=== PATIENT | female | born 1950 | race Caucasian/White ===

== ENCOUNTER → 2016-06-10 | Outpatient (CLI) | payer MEDICARE, OTHER ==
[~2016-06-10] MED LIST: AMLO10TA2 PO; BACT800T5 PO; BENA40TA PO; CEPH-459 PO; CLIN1CAP6 PO; GABA100C4 PO; GABA300C5 PO; HYDR-3534 PO; HYDR-3801 PO; LEVA500T PO; LEVO137T2 PO; METF500T PO; OMEG100037 PO; OMEGCAP PO; PRAM1 PO; VITA10002 PO; VITA100036 PO; VITA100L BUCCAL; ZOLP10TA3 PO
== END ==
LOC: CWND 09:17
PROVIDERS: ATTEND Family Medicine
DX: Z43.3 Encounter for attention to colostomy (principal)
CPT/HCPCS: 99211; G0463

== ENCOUNTER → 2016-08-04 | Outpatient (CLI) | payer MEDICARE, OTHER ==
[2016-08-04 10:20] LABS: AUTOMATED NEUTROPHIL # 3.7 TH/MM3 (1.8-7.7); BASOPHIL % 0.7 % (0.0-2.0); EOSINOPHIL # 0.1 TH/MM3 (0-0.4); EOSINOPHIL % 1.9 % (0.0-4.0); HEMO FLAGS DIFF FINAL; LYMPH % 23.6 % (9.0-44.0); LYMPHOCYTE # 1.3 TH/MM3 (1.0-4.8); MEAN CELL VOLUME 89.9 FL (80.0-100.0); MEAN CORPUSCULAR HEMOGLOBIN 29.3 PG (27.0-34.0); MEAN CORPUSCULAR HGB CONC 32.6 % (32.0-36.0); NEUT % 68.8 % (16.0-70.0); PLATELET COUNT 188 TH/MM3 (150-450); RED BLOOD COUNT 4.01 MIL/MM3 (4.00-5.30); RED CELL DISTRIBUTION WIDTH 13.6 % (11.6-17.2); WHITE BLOOD COUNT 5.3 TH/MM3 (4.0-11.0)
[2016-08-04 10:44] LABS: MICRO ALBUMIN RANDOM URINE RAW 5.7 MG/L (0.0-30.0)
[2016-08-04 10:49] LABS: HDL CHOLESTEROL 72.1 MG/DL (40.0-60.0); LDL CHOLESTEROL 89 MG/DL (0-99)
[2016-08-04 11:18] LABS: HEMOGLOBIN A1a 1.2 %; HEMOGLOBIN A1b 1.5 %; HEMOGLOBIN Ao 84.9 %; HEMOGLOBIN LA1C 2.2 %; HEMOGLOBIN P3 5.5 %
== END ==
LOC: CLAB 09:38
PROVIDERS: ATTEND Family Medicine
DX: E03.9 Hypothyroidism, unspecified (principal); E78.5 Hyperlipidemia, unspecified; E11.9 Type 2 diabetes mellitus without complications; E55.9 Vitamin D deficiency, unspecified; G47.00 Insomnia, unspecified; Z11.59 Encounter for screening for other viral diseases
CPT/HCPCS: 36415; 71020; 80053; 80061; 82043; 82306; 83036; 84443; 85025; 85610; 86803

== ENCOUNTER → 2016-08-04 | Outpatient (CLI) | payer MEDICARE, OTHER ==
[2016-08-04 10:26] LABS: PROTHROMBIN TIME - PATIENT 10.7 SEC (9.8-11.6)
[2016-08-04 10:40] LABS: ALKALINE PHOSPHATASE 94 U/L (45-117); ALT (GPT) 39 U/L (10-53); ANION GAP 6 MEQ/L (5-15); AST (GOT) 40 U/L (15-37); BICARBONATE 27.2 MEQ/L (21.0-32.0); BLOOD UREA NITROGEN 25 MG/DL (7-18); CHLORIDE 109 MEQ/L (98-107); GLOMERULAR FILTRATION RATE 64 ML/MIN (>89); GLUCOSE,FASTING 106 MG/DL (74-99); POTASSIUM 4.2 MEQ/L (3.5-5.1); SODIUM (NA) 142 MEQ/L (136-145); TOTAL BILIRUBIN ADULT 0.6 MG/DL (0.2-1.0)
--- NOTE | 2016-08-04 11:00 | RADRPT ---
EXAM DATE/TIME: 08/04/2016 10:42 [place] COMPARISON: No previous studies available for comparison. INDICATIONS : Evaluate for pneumonia, pnuemothorax, communicable disease. Preop Neuroma Left Foot. MEDICAL HISTORY : None. SURGICAL HISTORY : None. ENCOUNTER: Initial ACUITY: 1 day PAIN SCORE: 0/10 LOCATION: Bilateral chest FINDINGS: PA and lateral views of the chest demonstrate the lungs to be symmetrically aerated without evidence of mass, infiltrate or effusion. The cardiomediastinal contours are unremarkable. Osseous structure s are intact. CONCLUSION: Normal examination for a patient of this age. Cuong Salas MD on August 04, 2016 at 10:57 Board Certified Radiologist. This report was verified electronically.
== END ==
LOC: CPRE 09:22
PROVIDERS: ATTEND Podiatrist Primary Podiatric Medicine
DX: Z01.812 Encounter for preprocedural laboratory examination (principal); Z01.811 Encounter for preprocedural respiratory examination; G57.62 Lesion of plantar nerve, left lower limb
CPT/HCPCS: 36415; 71020; 80053; 85610

== ENCOUNTER → 2016-08-08 | Day surgery (SDC) | payer MEDICARE, OTHER ==
[~2016-08-08] VITALS: Ht 167.6 cm; Wt 86.7 kg
[~2016-08-08] MED LIST changes: +ACETAMINOPHEN 1000 MG/100 ML VIAL IV ONE; +BUPIVACAINE HCL PF 0.5% 30 ML VIAL ONE; +CHLORHEXIDINE GLUCONATE 2 % 1 PACK (2 CLOTHS) TOPICAL PRN; +FAMOTIDINE 20 MG/2 ML VIAL ONE; +IBUPROFEN 400 MG TAB PO PRN; +INSULIN HUMAN REGULAR 1,000 UNITS/10 ML VIAL SQ PRN; +LACTATED RINGER'S 1000 ML IV PRN; -LEVA500T PO; +LIDOCAINE HCL 1% 50 ML VIAL ONE; +METOPROLOL TARTRATE 25 MG TAB PO PRN; +MIDAZOLAM HCL 2 MG/2 ML VIAL ONE; +MORPHINE SULFATE 4 MG/ML INJ IV PRN; +NALOXONE HCL 0.4 MG/ML AMP IV PRN; +ONDANSETRON HCL 4 MG/2 ML VIAL ONE; +POVIDONE IODINE 5% (ANTISEPSIS KIT) 4 APPLICATIONS EACH NARE PRN; +PROPOFOL 200 MG/20 ML AMP IV ONE; +Post-op Orders (for Pharmacy) MISC XX ONE; +SODIUM CHLORID 0.9% 500 ML IV PRN; +SODIUM CHLORIDE 0.9% FLUSH 10 ML FLUSH IV FLUSH PRN; +SODIUM CHLORIDE 0.9% FLUSH 10 ML FLUSH IV FLUSH SCH; +ceFAZolin 2 GM PREMIX 50 ML IV SCH; +fentaNYL CITRATE 250 MCG/5 ML AMP ONE; +hydrALAZINE HCL 20 MG/ML VIAL IV ONE; +hydrALAZINE HCL 20 MG/ML VIAL ONE; +oxyCODONE/ACETAMINOPHEN 10 MG/325 MG TAB PO PRN; +oxyCODONE/ACETAMINOPHEN 5 MG/325 MG TAB PO PRN
[2016-08-08 07:47] VITALS: BP 181/74; PULSE 48; RESP 16; TEMP 97.7; O2SAT 96
--- NOTE | 2016-08-08 09:49 | PD.OP ---
Operative Report Date of Surgery: August 08, 2016 Preoperative Diagnosis: (1) Neuroma of second interspace of left foot Postoperative Diagnosis: (1) Neuroma of second interspace of left foot Procedure: Excision of Zavala's neuroma second interspace left foot Anesthesia: General inhalation Surgeon: Macario Harrison DPM Office Clerk Routine(s): None Operation and Findings: Patient was brought to the OR and placed on the operating table in a supine position. Patient was given general inhalation anesthesia. A pneumatic ankle cuff was placed around the patient's left ankle after padding was applied. Patient's left foot was prepped and draped in the usual sterile manner. After the appropriate timeout was performed the pneumatic ankle cuff was inflated to 250 mmHg. Left foot was lowered to the operating table. 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 A 3 cm linear incision was made over the interspace between the second and third metatarsals. The incision was deepened using sharp and blunt dissection taking care to tie off any superficial bleeding vessels and retracting all vital structures. A small baby laminar shellfish farming supervisor was placed between the second and third metatarsals to spread the metatarsals apart. The Zavala's neuroma was identified at this time then deep dissection. The proximal branch was transected as well as its branches into the second and third toe. The neuroma was removed and sent to pathology. The area is flushed with copious amounts of sterile saline. Subcutaneous tissue was reapproximated and closed using 2-0 Vicryl. Skin edges were reapproximated and closed with 3-0 Prolene. 10 cc of 0.5% Marcaine was infiltrated into the area per postoperative analgesia. The incision was dressed with Adaptic, 4 x 4's and Junaid and an Adiel bandage for compression. The pneumatic ankle cuff was deflated at the 20 minute hawa and the vastus status returned to the left foot Estimated blood loss was less than 10 cc. Neuroma was sent to pathology. Sponge and instrument counts were noted to be correct. Patient tolerated the procedures and anesthesia well and left the OR to PACU in apparent satisfactory condition with the vital signs stable and vascular status intact to all digits. Macario Harrison DPM August 08, 2016 09:49
[2016-08-08 11:18] VITALS: BP 178/80; PULSE 50; RESP 18; TEMP 97.6; O2SAT 99
== END | disposition home or self-care (01) ==
LOC: HSDC 07:15
PROVIDERS: ATTEND Podiatrist Primary Podiatric Medicine
DX: G57.62 Lesion of plantar nerve, left lower limb (principal); I10 Essential (primary) hypertension; E11.9 Type 2 diabetes mellitus without complications
CPT/HCPCS: 01470; 28080; 88305; J0131; J0690; J2250; J2270; J2405; J3010; J7120; L3260; 88304; J0360

== ENCOUNTER 2016-08-16 09:53 | Emergency (ER) | payer MEDICARE, OTHER ==
[~2016-08-16] VITALS: Ht 167.6 cm; Wt 88.6 kg
[~2016-08-16 09:53] MED LIST changes: -ACETAMINOPHEN 1000 MG/100 ML VIAL IV ONE; -BACT800T5 PO; -BUPIVACAINE HCL PF 0.5% 30 ML VIAL ONE; -CEPH-459 PO; -CHLORHEXIDINE GLUCONATE 2 % 1 PACK (2 CLOTHS) TOPICAL PRN; -CLIN1CAP6 PO; -FAMOTIDINE 20 MG/2 ML VIAL ONE; -GABA100C4 PO; -IBUPROFEN 400 MG TAB PO PRN; -INSULIN HUMAN REGULAR 1,000 UNITS/10 ML VIAL SQ PRN; -LACTATED RINGER'S 1000 ML IV PRN; -LIDOCAINE HCL 1% 50 ML VIAL ONE; -METOPROLOL TARTRATE 25 MG TAB PO PRN; -MIDAZOLAM HCL 2 MG/2 ML VIAL ONE; -MORPHINE SULFATE 4 MG/ML INJ IV PRN; -NALOXONE HCL 0.4 MG/ML AMP IV PRN; -OMEGCAP PO; -ONDANSETRON HCL 4 MG/2 ML VIAL ONE; -POVIDONE IODINE 5% (ANTISEPSIS KIT) 4 APPLICATIONS EACH NARE PRN; -PROPOFOL 200 MG/20 ML AMP IV ONE; -Post-op Orders (for Pharmacy) MISC XX ONE; -SODIUM CHLORID 0.9% 500 ML IV PRN; -SODIUM CHLORIDE 0.9% FLUSH 10 ML FLUSH IV FLUSH PRN; -SODIUM CHLORIDE 0.9% FLUSH 10 ML FLUSH IV FLUSH SCH; -VITA10002 PO; -ceFAZolin 2 GM PREMIX 50 ML IV SCH; -fentaNYL CITRATE 250 MCG/5 ML AMP ONE; -hydrALAZINE HCL 20 MG/ML VIAL IV ONE; -hydrALAZINE HCL 20 MG/ML VIAL ONE; -oxyCODONE/ACETAMINOPHEN 10 MG/325 MG TAB PO PRN; -oxyCODONE/ACETAMINOPHEN 5 MG/325 MG TAB PO PRN
[2016-08-16 09:55] VITALS: BP 177/73; PULSE 54; RESP 17; TEMP 98.4; O2SAT 98
[2016-08-16] MEDS ORDERED: VANCOMYCIN INJ 1,000 MG in SODIUM CHLOR 0.9% 250 ML INJ 250 ML IV STA (10:18)
[2016-08-16] MEDS ORDERED: PIPERACIL-TAZO 4.5 GM PREMIX 100 ML IV STA (10:18)
--- NOTE | 2016-08-16 10:26 | PD ---
HPI . Pain and swelling of the left foot Chief Complaint: Skin Problem Time Seen by Provider: 10:18 Travel History International Travel<30 days: No Contact w/Intl Traveler<30days: No Traveled to known affect area: No History of Present Illness HPI Patient presents complaining with pain and swelling of her left foot. She is status post excision of a Zavala's neuroma on 08/08. She states that she was doing well until about 2 days ago when she started having increasing pain and swelling. Her symptoms have been getting progressively worse over the last 2 days. There is now purulent drainage from the wound. She describes her pain as constant and aching and rates it as 8/10. She denies any known fever. No obvious exacerbating or relieving factors. PFSH Past Medical History Cancer: Yes (ANAL CA) Cardiac Catheterization: Yes Cardiovascular Problems: No Diabetes: Yes Endocrine: Yes Genitourinary: No Hepatitis: No Hiatal Hernia: No Hypertension: Yes Immune Disorder: No Musculoskeletal: Yes (OA) Neurologic: No Psychiatric: No Reproductive: No Respiratory: No Thyroid Disease: Yes (TYPE 2) Menopausal: Yes Past Surgical History Abdominal Surgery: Yes (COLOSTOMY (ANAL CA), CHOLECYSTECTOMY) AICD: No Cardiac Surgery: No Cholecystectomy: Yes Ear Surgery: No Endocrine Surgery: No Eye Surgery: Yes (BILATEAL CATARACTS) Genitourinary Surgery: No Gynecologic Surgery: Yes (HYSTERECTOMY) Hysterectomy: Yes Joint Replacement: No Oral Surgery: No Pacemaker: No Thoracic Surgery: No Other Surgery: Yes (STENT TO KIDNEY) Social History Alcohol Use: Yes (FEW TIMES A WEEK) Tobacco Use: No Substance Use: No Allergies-Medications (Allergen,Severity, Reaction): Coded Allergies: *MDRO Multi-Drug Resistant Organism (Verified Allergy, Unknown, 08/16/16) 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 Reported Meds & Prescriptions Reported Meds & Active Scripts Active Keflex (Cephalexin) 250 Mg Cap 500 Mg PO TID 10 Days Bactrim DS (Sulfamethoxazole-Trimethoprim) 800-160 Mg Tab 1 Tab PO BID Zolpidem (Zolpidem Tartrate) 10 Mg Tab 10 Mg PO HS PRN Levothyroxine (Levothyroxine Sodium) 137 Mcg Tab 137 Mcg PO DAILY Mirapex (Pramipexole Dihydrochloride) 1 Mg Tab 1 Mg PO BID Benazepril (Benazepril HCl) 40 Mg Tab 40 Mg PO DAILY Amlodipine (Amlodipine Besylate) 10 Mg Tab 10 Mg PO DAILY Metformin (Metformin HCl) 500 Mg Tab 500 Mg PO DAILY With a meal Reported Vitamin B-12 (Cyanocobalamin) 100 Mcg Lozg 100 Mcg BUCCAL DAILY Fish Oil 1000 mg (Faith-3 Fatty Acids) 1 Cap Cap 1 Cap PO DAILY Vitamin D3 (Cholecalciferol) 1,000 Unit Cap 1,000 Units PO DAILY Hydralazine (Hydralazine HCl) 100 Mg Tab 100 Mg PO BID Take with meals Gabapentin 300 Mg Cap 300 Mg PO HS Review of Systems Except as stated in HPI: all other systems reviewed are Neg General / Constitutional: No: Fever, Chills Musculoskeletal: Positive: Edema Skin: Positive Change in Pigmentation, Positive Other (drainage) Physical Exam Narrative GENERAL: Awake and alert and in no acute distress. SKIN: Warm and dry. Surgical wound on the dorsal aspect of the left foot. There is scant purulent drainage noted. The dorsum of the left foot is swollen and red. She has redness extending up the medial left rivero for approximately 10 cm. HEAD: Atraumatic. Normocephalic. EYES: Pupils equal and round. NECK: Trachea midline. CARDIOVASCULAR: Regular rate and rhythm. RESPIRATORY: No accessory muscle use. MUSCULOSKELETAL: No obvious deformities. No edema. NEUROLOGICAL: Awake and alert. No obvious cranial nerve deficits. Motor grossly within normal limits. Normal speech. PSYCHIATRIC: Appropriate mood and affect; insight and judgment normal. Data Data Last Documented VS Vital Signs Date Time Temp Pulse Resp B/P Pulse Ox O2 Delivery O2 Flow Rate FiO2 08/16/16 12:20 56 16 96 Room Air 08/16/16 09:55 98.4 177/73 Orders Complete Blood Count With Diff (08/16/16 10:18) Comprehensive Metabolic Panel (08/16/16 10:18) Lactic Acid Sepsis Protocol (08/16/16 10:18) Blood Culture (08/16/16 10:18) Wound Culture And Gram Stain (08/16/16 10:18) Iv Access Insert/Monitor (08/16/16 10:18) Morphine Inj (Morphine Inj) (08/16/16 10:30) Ondansetron Inj (Zofran Inj) (08/16/16 10:30) Piperacil-Tazo 4.5 Gm Premix (Zosyn 4.5 (08/16/16 10:18) Vancomycin Inj (Vancomycin Inj) (08/16/16 10:18) Prochlorperazine Inj (Compazine Inj) (08/16/16 11:30) Diphenhydramine Inj (Benadryl Inj) (08/16/16 11:30) Labs Laboratory Tests Test 08/16/16 10:50 White Blood Count 9.9 TH/MM3 Red Blood Count 4.23 MIL/MM3 Hemoglobin 12.6 GM/DL Hematocrit 38.1 % Mean Corpuscular Volume 90.0 FL Mean Corpuscular Hemoglobin 29.7 PG Mean Corpuscular Hemoglobin 33.0 % Concent Red Cell Distribution Width 13.7 % Platelet Count 210 TH/MM3 Mean Platelet Volume 9.1 FL Neutrophils (%) (Auto) 78.7 % Lymphocytes (%) (Auto) 13.1 % Monocytes (%) (Auto) 6.4 % Eosinophils (%) (Auto) 1.2 % Basophils (%) (Auto) 0.6 % Neutrophils # (Auto) 7.8 TH/MM3 Lymphocytes # (Auto) 1.3 TH/MM3 Monocytes # (Auto) 0.6 TH/MM3 Eosinophils # (Auto) 0.1 TH/MM3 Basophils # (Auto) 0.1 TH/MM3 CBC Comment DIFF FINAL Differential Comment Sodium Level 141 MEQ/L Potassium Level 4.2 MEQ/L Chloride Level 106 MEQ/L Carbon Dioxide Level 28.2 MEQ/L Anion Gap 7 MEQ/L Blood Urea Nitrogen 22 MG/DL Creatinine 0.91 MG/DL Estimat Glomerular Filtration 61 ML/MIN Rate Random Glucose 124 MG/DL Lactic Acid Level 0.9 mmol/L Calcium Level 9.4 MG/DL Total Bilirubin 1.2 MG/DL Aspartate Amino Transf 27 U/L (AST/SGOT) Alanine Aminotransferase 32 U/L (ALT/SGPT) Alkaline Phosphatase 102 U/L Total Protein 8.3 GM/DL Albumin 4.0 GM/DL [facility] Medical Decision Making Medical Screen Exam Complete: Yes Emergency Medical Condition: Yes Medical Record Reviewed: Yes (patient is status post excision of a Zavala's neuroma on 08/08.) Differential Diagnosis My differential diagnosis includes but is not limited to localized wound infection, cellulitis, abscess Narrative Course Patient presents complaining with pain and swelling of the left foot which started approximately 7 days following surgery. I have initiated a septic workup. She will be treated empirically with Zosyn and vancomycin pending the septic workup. CBC & BMP Diagram 08/16/16 10:50 Lactic acid normal. Vital Signs Date Time Temp Pulse Resp B/P Pulse Ox O2 Delivery O2 Flow Rate FiO2 08/16/16 09:55 98.4 54 17 177/73 98 This patient has no signs or symptoms suggesting sepsis. She will be discharged on Keflex and Bactrim. The patient was given morphine for pain. She developed nausea and vomiting following the morphine. She was pretreated with Zofran prior to the morphine but developed nausea and vomiting anyway. She has subsequently been given Compazine and Benadryl. Diagnosis Primary Impression: Cellulitis Qualified Code: L03.116 - Cellulitis of left lower extremity Patient Instructions: Cellulitis (DC), General Instructions Med/Other Pt SpecificInfo: Prescription(s) given Scripts Cephalexin (Keflex)250 Mg [id number] Mg PO TID 10 Days Ref 0 Prov:Devi Cornell MD 08/16/16 Sulfamethoxazole-Trimethoprim (Bactrim DS)800-160 Mg Tab1 Tab PO BID #20 TAB Ref 0 Prov:Devi Cornell MD 08/16/16 Disposition: 01 DISCHARGE HOME Condition: Stable Devi Cornell MD August 16, 2016 10:26
[2016-08-16] MEDS ORDERED: ONDANSETRON HCL 4 MG/2 ML VIAL IV ONE (10:30)
[2016-08-16] MEDS ORDERED: MORPHINE SULFATE 8 MG/ML INJ IV PUSH ONE (10:30)
[2016-08-16 11:05] LABS: AUTOMATED NEUTROPHIL # 7.8 TH/MM3 (1.8-7.7); BASOPHIL # 0.1 TH/MM3 (0-0.2); BASOPHIL % 0.6 % (0.0-2.0); EOSINOPHIL # 0.1 TH/MM3 (0-0.4); EOSINOPHIL % 1.2 % (0.0-4.0); HEMATOCRIT 38.1 % (35.0-46.0); HEMO FLAGS DIFF FINAL; LYMPH % 13.1 % (9.0-44.0); LYMPHOCYTE # 1.3 TH/MM3 (1.0-4.8); MEAN CORPUSCULAR HEMOGLOBIN 29.7 PG (27.0-34.0); MONO % 6.4 % (0.0-8.0); NEUT % 78.7 % (16.0-70.0); PLATELET COUNT 210 TH/MM3 (150-450); RED BLOOD COUNT 4.23 MIL/MM3 (4.00-5.30); RED CELL DISTRIBUTION WIDTH 13.7 % (11.6-17.2); WHITE BLOOD COUNT 9.9 TH/MM3 (4.0-11.0)
[2016-08-16 11:16] LABS: CHLORIDE 106 MEQ/L (98-107); POTASSIUM 4.2 MEQ/L (3.5-5.1); SODIUM (NA) 141 MEQ/L (136-145)
[2016-08-16 11:19] LABS: ANION GAP 7 MEQ/L (5-15); BICARBONATE 28.2 MEQ/L (21.0-32.0); BLOOD UREA NITROGEN 22 MG/DL (7-18)
[2016-08-16 11:22] LABS: ALT (GPT) 32 U/L (10-53); AST (GOT) 27 U/L (15-37)
[2016-08-16 11:23] LABS: GLOMERULAR FILTRATION RATE 61 ML/MIN (>89)
[2016-08-16 11:24] LABS: TOTAL BILIRUBIN ADULT 1.2 MG/DL (0.2-1.0)
[2016-08-16 11:25] LABS: ALKALINE PHOSPHATASE 102 U/L (45-117)
[2016-08-16] MEDS ORDERED: PROCHLORPERAZINE INJ 10 MG/2 ML VIAL IV PUSH ONE (11:30)
[2016-08-16] MEDS ORDERED: diphenhydrAMINE HCL 50 MG/ML VIAL IV PUSH ONE (11:30)
[2016-08-16] MEDS ORDERED: BACT800T5 PO (11:39)
[2016-08-16] MEDS ORDERED: CEPH-459 PO (11:39)
[2016-08-16 12:20] VITALS: PULSE 56; RESP 16; O2SAT 96
[2016-08-16 13:56] VITALS: BP 120/72
[2016-08-17] MEDS ORDERED: HYDR-3534 PO (23:15)
[2016-08-17] MEDS ORDERED: OMEGCAP PO (23:15)
[2016-08-17] MEDS ORDERED: GABA100C4 PO (23:15)
[2016-08-17] MEDS ORDERED: VITA10002 PO (23:15)
[2016-09-05] MEDS ORDERED: ZOLP10TA3 PO (14:04)
[2016-09-05] MEDS ORDERED: GABA100C4 PO (14:04)
[2016-09-08] MEDS ORDERED: GABA100C4 PO (15:33)
== END 2016-08-16 14:00 | disposition home or self-care (01) ==
LOC: PHED 09:53
DX: L03.116 Cellulitis of left lower limb (principal); A49.01 Methicillin susceptible Staphylococcus aureus infection, unspecified site; E11.9 Type 2 diabetes mellitus without complications; I10 Essential (primary) hypertension; Z93.3 Colostomy status; Z98.890 Other specified postprocedural states
CPT/HCPCS: 80053; 83605; 85025; 86403; 87040; 87070; 87186; 96365; 96366; 96375; 99284; J0780; J2270; J2405; J2543; J3370; J7050; 87205

== ENCOUNTER 2016-08-17 21:06 | Observation (INO) | payer MEDICARE, OTHER ==
[~2016-08-17] VITALS: Ht 167.6 cm; Wt 84.4 kg
[~2016-08-17 21:06] MED LIST changes: +BACT800T5 PO; +CEPH-459 PO; -HYDR-3534 PO
[2016-08-17 21:11] VITALS: BP 132/68; PULSE 61; RESP 18; TEMP 99.1
[2016-08-17] MEDS ORDERED: OMEGCAP PO (23:15)
[2016-08-17] MEDS ORDERED: VITA10002 PO (23:15)
[2016-08-17] MEDS ORDERED: HYDR-3534 PO (23:15)
[2016-08-17] MEDS ORDERED: GABA100C4 PO (23:15)
[2016-08-17 23:25] VITALS: BP 120/55; PULSE 54; RESP 17; O2SAT 94
[2016-08-18] VITALS (10 sets, daily range): BP systolic 109–191; BP diastolic 60–79; PULSE 45–56; RESP 16–20; TEMP 96–96.8; O2SAT 94–99
--- NOTE | 2016-08-18 00:21 | PD ---
HPI Chief Complaint: Skin Problem Time Seen by Provider: 23:48 Travel History International Travel<30 days: No Contact w/Intl Traveler<30days: No Traveled to known affect area: No History of Present Illness HPI The patient is a 66-year-old female that comes in because of increased pain and swelling over left foot. She is status post excision of a Zavala's neuroma on the of this month. She was doing well until 3 days ago when she started having increased pain and swelling. She came in the emergency department and was prescribed Keflex and Bactrim DS. She states that the redness has increased and gone up over correction up her left lower leg and the swelling has increased and the pain is increased. She also has slight tenderness over left inguinal node. She denies any fever, nausea or vomiting. She has been taking medications correctly but it was prescribed only yesterday and she has only taken 3 doses of the Bactrim. The cultures have grown out on the wound culture heavy coagulase positive staph growth. The aerobic blood cultures are negative after 24 hours. The patient is a [id number] diabetic and states she has had infections before which required admission to the hospital and this is what she wants. PFSH Past Medical History Cancer: Yes (ANAL CA) Cardiac Catheterization: Yes Cardiovascular Problems: No High Cholesterol: Yes Diabetes: Yes Patient Takes Glucophage: Yes Diminished Hearing: No Endocrine: Yes Gastrointestinal Disorders: Yes (REFLUX, COLOSTOMY) Genitourinary: No Hepatitis: No Hiatal Hernia: No Hypertension: Yes Immune Disorder: No Implanted Vascular Access Dvce: No Musculoskeletal: Yes (OA) Neurologic: No Psychiatric: No Reproductive: No Respiratory: No Thyroid Disease: Yes Tetanus Vaccination: Unknown Influenza Vaccination: Yes ?: Not Menopausal: Yes Past Surgical History Abdominal Surgery: Yes (COLOSTOMY (ANAL CA), CHOLECYSTECTOMY) AICD: No Cardiac Surgery: No Cholecystectomy: Yes Ear Surgery: No Endocrine Surgery: No Eye Surgery: Yes (BILATEAL CATARACTS) Genitourinary Surgery: No Gynecologic Surgery: Yes (HYSTERECTOMY) Hysterectomy: Yes Joint Replacement: No Neurologic Surgery: No Oral Surgery: No Pacemaker: No Thoracic Surgery: No Other Surgery: Yes (STENT TO KIDNEY) Social History Alcohol Use: Yes (FEW TIMES A WEEK) Tobacco Use: No Substance Use: No Allergies-Medications (Allergen,Severity, Reaction): Coded Allergies: *MDRO Multi-Drug Resistant Organism (Verified Allergy, Unknown, 08/17/16) 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 Reported Meds & Prescriptions Reported Meds & Active Scripts Active Keflex (Cephalexin) 250 Mg Cap 500 Mg PO TID 10 Days Bactrim DS (Sulfamethoxazole-Trimethoprim) 800-160 Mg Tab 1 Tab PO BID Zolpidem (Zolpidem Tartrate) 10 Mg Tab 10 Mg PO HS PRN Levothyroxine (Levothyroxine Sodium) 137 Mcg Tab 137 Mcg PO DAILY Mirapex (Pramipexole Dihydrochloride) 1 Mg Tab 1 Mg PO BID Benazepril (Benazepril HCl) 40 Mg Tab 40 Mg PO DAILY Amlodipine (Amlodipine Besylate) 10 Mg Tab 10 Mg PO DAILY Metformin (Metformin HCl) 500 Mg Tab 500 Mg PO DAILY With a meal Reported Lortab (Hydrocodone-Acetaminophen) 7.5-325 Mg Tab 1 Tab PO Q4H PRN [place]ock-3 Fish Oil/Vitamin (Fish Oil-Cholecalciferol) 1,000-1,000 Mg Cap 1 Cap PO DAILY Vitamin B-12 (Cyanocobalamin) 1,000 Mcg Tab 1,000 Mcg PO DAILY Gabapentin 100 Mg Cap 300 Mg PO HS Vitamin D3 (Cholecalciferol) 1,000 Unit Cap 1,000 Units PO DAILY Hydralazine (Hydralazine HCl) 100 Mg Tab 100 Mg PO BID Take with meals Review of Systems Except as stated in HPI: all other systems reviewed are Neg Physical Exam Narrative GENERAL: The patient is alert, oriented 3 in slight apparent distress with her left foot discomfort. Her vital signs are normal. SKIN: Focused skin assessment warm/dry. There is cellulitis over the dorsum of the right foot and purulent drainage from the wound. The area of cellulitis is 10 x 10 on the dorsum of the foot and there is erythema extending over correction up the left anterior tibial area as well as tenderness there. There is tenderness on the left inguinal node but no posterior tibial tenderness. HEAD: Atraumatic. Normocephalic. EYES: Pupils equal and round. No scleral icterus. No injection or drainage. ENT: No nasal bleeding or discharge. Mucous membranes pink and moist. NECK: Trachea midline. No JVD. CARDIOVASCULAR: Regular rate and rhythm. No murmur appreciated. RESPIRATORY: No accessory muscle use. Clear to auscultation. Breath sounds equal bilaterally. GASTROINTESTINAL: Abdomen soft, non-tender, nondistended. Hepatic and splenic margins not palpable. MUSCULOSKELETAL: No obvious deformities. No clubbing. No cyanosis. No edema. NEUROLOGICAL: Awake and alert. No obvious cranial nerve deficits. Motor grossly within normal limits. Normal speech. PSYCHIATRIC: Appropriate mood and affect; insight and judgment normal. Data Data Last Documented VS Vital Signs Date Time Temp Pulse Resp B/P Pulse Ox O2 Delivery O2 Flow Rate FiO2 08/17/16 21:11 99.1 61 18 132/68 Orders Complete Blood Count With Diff (08/18/16 00:10) Comprehensive Metabolic Panel (08/18/16 00:10) Urinalysis - C+S If Indicated (08/18/16 00:10) Vancomycin Inj (Vancomycin Inj) (08/18/16 00:30) [facility] Medical Decision Making Medical Screen Exam Complete: Yes Emergency Medical Condition: Yes Medical Record Reviewed: Yes Differential Diagnosis Cellulitis, lymphadenitis, failure of outpatient therapy, diabetes mellitus poor control, electrolyte disorder Narrative Course The patient has not had an adequate trial of outpatient therapy because it is only been 1.5 days. However she is worse according to herself and her friend. She states that she does badly as an outpatient with antibiotics and generally needs admission when she gets an infection. Impression: Cellulitis/lymphadenitis left foot, failure of outpatient therapy Plan: The patient will be 23 hour observation for IV antibiotic therapy. Diagnosis Primary Impression: Cellulitis of left foot Additional Impressions: Lymphadenitis Failure of outpatient treatment Admitting Information Admitting Physician Requests: Observation Aiden Lyon MD August 18, 2016 00:21
[2016-08-18] MEDS ORDERED: ACETAMINOPHEN/HYDROcodone 325 MG/5 MG TAB PO PRN (00:30)
[2016-08-18] MEDS ORDERED: ONDANSETRON HCL 4 MG/2 ML VIAL IVP PRN (00:30)
[2016-08-18] MEDS ORDERED: ACETAMINOPHEN 325 MG TAB PO PRN (00:30)
[2016-08-18] MEDS ORDERED: DEXTROSE 50% IN WATER 50 ML VIAL(D50) IV PRN (00:30)
[2016-08-18] MEDS ORDERED: Vancomycin Consult Pharmacy 1 EA OTHER SCH (00:30)
[2016-08-18] MEDS ORDERED: LACTULOSE SYRUP 20 GM/30 ML CUP PO PRN (00:30)
[2016-08-18] MEDS ORDERED: VANCOMYCIN INJ 1,750 MG in SODIUM CHLORID 0.9% 500 ML INJ 500 ML IV ONE (00:30)
[2016-08-18] MEDS ORDERED: BISACODYL 10 MG SUPP RECTAL PRN (00:30)
[2016-08-18] MEDS ORDERED: GLUCAGON 1 MG/ML VIAL OTHER PRN (00:30)
[2016-08-18] MEDS ORDERED: SODIUM CHLORIDE 0.9% FLUSH 10 ML FLUSH IV FLUSH PRN (00:30)
[2016-08-18] MEDS ORDERED: MAGNESIUM HYDROXIDE SUSP 30 ML CUP PO PRN (00:30)
[2016-08-18] MEDS ORDERED: SENNOSIDES 8.6 MG TAB PO PRN (00:30)
[2016-08-18] MEDS ORDERED: ONDANSETRON HCL 4 MG/2 ML VIAL IV ONE (00:45)
[2016-08-18] MEDS ORDERED: HYDROmorphone HCL PF 1 MG/ML VIAL IVP ONE (00:45)
[2016-08-18] MEDS: CEFEPIME INJ 1,000 MG in SODIUM CHLORIDE 0.9% INJ 100 ML IV SCH ×2 (00:56→14:04)
[2016-08-18 01:02] LABS: AUTOMATED NEUTROPHIL # 5.8 TH/MM3 (1.8-7.7); BASOPHIL # 0.4 TH/MM3 (0-0.2); BASOPHIL % 4.2 % (0.0-2.0); EOSINOPHIL # 0.2 TH/MM3 (0-0.4); EOSINOPHIL % 2.1 % (0.0-4.0); HEMATOCRIT 34.9 % (35.0-46.0); HEMO FLAGS DIFF FINAL; LYMPH % 17.1 % (9.0-44.0); LYMPHOCYTE # 1.4 TH/MM3 (1.0-4.8); MEAN CELL VOLUME 90.1 FL (80.0-100.0); MEAN CORPUSCULAR HEMOGLOBIN 28.9 PG (27.0-34.0); MEAN CORPUSCULAR HGB CONC 32.1 % (32.0-36.0); MONO % 7.5 % (0.0-8.0); NEUT % 69.1 % (16.0-70.0); PLATELET COUNT 122 TH/MM3 (150-450); RED BLOOD COUNT 3.87 MIL/MM3 (4.00-5.30); RED CELL DISTRIBUTION WIDTH 13.8 % (11.6-17.2); WHITE BLOOD COUNT 8.4 TH/MM3 (4.0-11.0)
[2016-08-18 01:04] LABS: CHLORIDE 107 MEQ/L (98-107); SODIUM (NA) 140 MEQ/L (136-145)
[2016-08-18 01:05] LABS: BLOOD, URINE NEG (NEG); GLUCOSE,URINE NEG (NEG); KETONE, URINE NEG (NEG); NITRITE,URINE NEG (NEG)
[2016-08-18 01:08] LABS: ANION GAP 9 MEQ/L (5-15); BICARBONATE 24.3 MEQ/L (21.0-32.0); BLOOD UREA NITROGEN 22 MG/DL (7-18)
[2016-08-18 01:11] LABS: ALT (GPT) 34 U/L (10-53); AST (GOT) 39 U/L (15-37); GLOMERULAR FILTRATION RATE 57 ML/MIN (>89)
[2016-08-18 01:14] LABS: ALKALINE PHOSPHATASE 98 U/L (45-117)
[2016-08-18 01:16] LABS: POTASSIUM 4.9 MEQ/L (3.5-5.1)
[2016-08-18 01:17] LABS: URINE COLOR YELLOW (YELLW/STRAW)
[2016-08-18 01:18] LABS: RBC, URINE 0-3 /hpf (0-3); SQUAMOUS EPITHELIAL CELL URINE 0-5 /hpf (0-5)
[2016-08-18 01:19] LABS: COMMENT (UR) CULTURE INDICATED; CULTURE IF INDICATED CULTURE INDICATED
[2016-08-18] MEDS: INSULIN ASPART SUPPLEMENTAL SCALE SQ SCH ×4 (06:41→20:30)
[2016-08-18] MEDS ORDERED: hydrALAZINE HCL 100 MG TAB PO SCH (09:00)
[2016-08-18] MEDS ORDERED: NON-FORMULARY DRUG (Fish Oil-Cholecalciferol (Omega-3 Fish Oil/Vitamin) 1 CAP) PO SCH (09:00)
[2016-08-18] MEDS: SODIUM CHLORIDE 0.9% FLUSH 10 ML FLUSH IV FLUSH SCH ×2 (09:00→20:29)
--- NOTE | 2016-08-18 09:16 | HHI.HP ---
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 this is her second presentation to ER. she says that she was fine after the surgery till few days ago when she noticed some redness and swelling of the left foot. she came to ER and was prescribed bactrim and keflex and she was discharged home. she says that she took three doses of each but she noticed that the swelling and erythema was getting worse which made her to come to ER again. she reported some fever and chills at home. Review of Systems Constitutional: COMPLAINS OF: Fever, Chills, DENIES: Weight loss, Night Sweats Eyes: DENIES: Blurred vision, Diplopia, Vision loss, Double Vision Ears, nose, mouth, throat: DENIES: Tinnitus, Vertigo, Throat pain, Epistaxis Respiratory: DENIES: Apneas, Cough, Snoring, Wheezing, Hemoptysis, Sputum production, Shortness of breath Cardiovascular: COMPLAINS OF: Lower Extremity Edema, DENIES: Chest pain, Palpitations, Syncope, Dyspnea on Exertion, PND, Orthopnea, Claudication Gastrointestinal: DENIES: Abdominal pain, Black stools, Bloody stools, Constipation, Diarrhea, Nausea, Vomiting, Difficulty Swallowing, Anorexia Genitourinary: DENIES: Urinary frequency, Urgency, Hematuria, Dysuria Musculoskeletal: COMPLAINS OF: Joint pain (left foot), DENIES: Muscle aches, Stiffness, Joint Swelling Integumentary: DENIES: Rash Neurologic: DENIES: Abnormal gait, Headache, Localized weakness, Paresthesias, Seizures, Speech Problems, Tremor, Poor Balance Psychiatric: DENIES: Anxiety, Confusion, Mood changes, Depression, Hallucinations, Agitation, Suicidal Ideation, Homicidal Ideation, Delusions Past Family Social History Past Medical History diabetes mellitus hypertension anal cancer Past Surgical History colostomy hysterectomy Reported Medications Keflex (Cephalexin) 250 Mg Cap 500 Mg PO TID 10 Days Bactrim DS (Sulfamethoxazole-Trimethoprim) 800-160 Mg Tab 1 Tab PO BID Zolpidem (Zolpidem Tartrate) 10 Mg Tab 10 Mg PO HS PRN Levothyroxine (Levothyroxine Sodium) 137 Mcg Tab 137 Mcg PO DAILY Mirapex (Pramipexole Dihydrochloride) 1 Mg Tab 1 Mg PO BID Benazepril (Benazepril HCl) 40 Mg Tab 40 Mg PO DAILY Amlodipine (Amlodipine Besylate) 10 Mg Tab 10 Mg PO DAILY Metformin (Metformin HCl) 500 Mg Tab 500 Mg PO DAILY With a meal Lortab (Hydrocodone-Acetaminophen) 7.5-325 Mg Tab 1 Tab PO Q4H PRN [place]-3 Fish Oil/Vitamin (Fish Oil-Cholecalciferol) 1,000-1,000 Mg Cap 1 Cap PO DAILY Vitamin B-12 (Cyanocobalamin) 1,000 Mcg Tab 1,000 Mcg PO DAILY Gabapentin 100 Mg Cap 300 Mg PO HS Vitamin D3 (Cholecalciferol) 1,000 Unit Cap 1,000 Units PO DAILY Hydralazine (Hydralazine HCl) 100 Mg Tab 100 Mg PO BID Take with meals Allergies: Coded Allergies: *MDRO Multi-Drug Resistant Organism (Verified Allergy, Unknown, 08/17/16) 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 Active Ordered Medications Current Medications Vancomycin HCl/ Sodium Chloride (Vancomycin Inj/ NS 500 ml Inj) 517.5 ml @ 258.75 mls/ hr ONCE ONCE IV Last administered on 08/18/16t 02:23; Start at 00:30; Stop 08/18/16 at 02:29; Status DC Sodium Chloride (NS Flush) 2 ml UNSCH PRN IV FLUSH FLUSH AFTER USING IV ACCESS ; Start 08/18/16 at 00:30 Sodium Chloride (NS Flush) 2 ml BID IV FLUSH ; Start 08/18/16 at 09:00 Ondansetron HCl (Zofran Inj) 4 mg Q6H PRN IVP NAUSEA OR VOMITING; Start at 00:30 Acetaminophen (Tylenol) 650 mg Q6H PRN PO FEVER/PAIN SCALE 1 TO 2; Start at 00:30 Acetaminophen/ Hydrocodone Bitart ([place] 5-325 Mg) 1 tab Q4H PRN PO PAIN SCALE 3 TO 5 Last administered on 08/18/16t 02:26; Start 08/18/16 at 00:30 Acetaminophen/ Hydrocodone Bitart ([place] 10-325 Mg) 1 tab Q4H PRN PO PAIN SCALE 6 TO 10; Start 08/18/16 at 00:30 Senna/Docusate Sodium (Breanna-Colace) 1 tab BID PO ; Start 08/18/16 at 09:00 Magnesium Hydroxide (Milk Of Magnesia Liq) 30 ml Q12H PRN PO MILD - MODERATE CONSTIPATION; Start 08/18/16 at 00:30 Sennosides (Senokot) 17.2 mg Q12H PRN PO MODERATE - SEVERE CONSTIPATION; Start 08/18/16 at 00:30 Bisacodyl (Dulcolax Supp) 10 mg DAILY PRN RECTAL SEVERE CONSITIPATION; Start at 00:30 Lactulose (Lactulose Liq) 30 ml DAILY PRN PO SEVERE CONSITIPATION; Start at 00:30 Amlodipine Besylate (Norvasc) 10 mg DAILY PO ; Start 08/18/16 at 09:00 Cholecalciferol (Vitamin D3) 1,000 units DAILY PO ; Start 08/18/16 at 09:00 Cyanocobalamin (Vitamin B12) 1,000 mcg DAILY PO ; Start 08/18/16 at 09:00 Gabapentin (Neurontin) 300 mg HS PO ; Start 08/18/16 at 21:00 Hydralazine HCl (Apresoline) 100 mg BID PO ; Start 08/18/16 at 09:00 Metformin HCl (Glucophage) 500 mg DAILY PO ; Start 08/18/16 at 09:00 Pramipexole Dihydrochloride (Mirapex) 1 mg BID PO ; Start 08/18/16 at 09:00 Zolpidem Tartrate (Ambien) 10 mg HS PRN PO INSOMNIA; Start 08/18/16 at 00:30 Lisinopril (Prinivil) 40 mg DAILY PO BPM; Start 08/18/16 at 09:00 Non-Formulary Medication 1 cap DAILY PO NS; Start 08/18/16 at 09:00; Stop at 09:00; Status DC Levothyroxine Sodium (Synthroid) 112 mcg DAILY@07 PO ; Start 08/18/16 at 07:00 Dextrose (D50w (Vial) Inj) 50 ml UNSCH PRN IV HYPOGLYCEMIA-SEE COMMENTS; Start 08/18/16 at 00:30 Glucagon (Glucagon Inj) 1 mg UNSCH PRN OTHER HYPOGLYCEMIA-SEE COMMENTS; Start 08/18/16 at 00:30 Insulin Aspart 1 1 ACHS SLIDING SCALE SQ ; Start 08/18/16 at 07:00 Pharmacy Profile Note 0 ml @ 0 mls/hr UNSCH OTHER ; Start 08/18/16 at 00:30 Cefepime HCl/ Sodium Chloride (Maxipime Inj/NS Inj) 100 ml @ 200 mls/hr Q12H IV Last administered on 08/18/16 00:56; Start 08/18/16 at 00:30 Hydromorphone HCl (Dilaudid Pf Inj) 0.5 mg ONCE ONCE IVP Last administered on 08/18/16 00:53; Start 08/18/16 at 00:45; Stop 08/18/16 at 00:46; Status DC Ondansetron HCl (Zofran Inj) 4 mg ONCE ONCE IV Last administered on 08/18/16 00:52; Start 08/18/16 at 00:45; Stop 08/18/16 at 00:46; Status DC Levothyroxine Sodium 25 mcg 25 mcg DAILY@07 PO ; Start 08/18/16 at 07:00 Vancomycin HCl/ Sodium Chloride (Vancomycin Inj/ NS 500 ml Inj) 514 ml @ 250 mls/hr Q18H IV ; Start 08/18/16 at 21:00; Stop 08/18/16 at 21:00; Status DC Miscellaneous Information SPECIFIC LAB TO BE ENID... ONCE ONCE .XX ; Start 08/20 at 08:45; Stop 08/20/16 at 08:45; Status DC Vancomycin HCl/ Sodium Chloride (Vancomycin Inj/ NS 500 ml Inj) 514 ml @ 250 mls/hr Q18H IV ; Start 08/19/16 at 00:00 Miscellaneous Information SPECIFIC LAB TO BE ENID... ONCE ONCE .XX ; Start 08/20 at 11:45; Stop 08/20/16 at 11:46 Family History diabetes in mother. Social History quit smoking years ago- doesn't drink. Physical Exam Vital Signs Vital Signs Date Time Temp Pulse Resp B/P Pulse Ox O2 Delivery O2 Flow Rate FiO2 08/18/16 06:45 48 16 08/18/16 06:45 48 16 164/74 99 08/18/16 06:09 47 16 164/74 96 Nasal Cannula 2 08/18/16 05:00 45 16 109/60 97 Nasal Cannula 2 08/18/16 03:26 16 08/18/16 02:50 48 16 151/64 97 Nasal Cannula 2 08/18/16 01:45 54 16 153/71 97 Nasal Cannula 2 08/18/16 01:23 17 08/18/16 00:05 52 16 117/61 94 Nasal Cannula 2 08/17/16 23:25 54 17 120/55 94 Room Air 08/17/16 21:11 99.1 61 18 132/68 Physical Exam GENERAL: This is a well-nourished, well-developed patient, in no apparent distress. SKIN:erythema over the left foot- over the second interspace HEAD: Atraumatic. Normocephalic. No temporal or scalp tenderness. EYES: Pupils equal round and reactive. Extraocular motions intact. No scleral icterus. No injection or drainage. ENT: Nose without bleeding, purulent drainage or septal hematoma. Throat without erythema, tonsillar hypertrophy or exudate. Uvula midline. Airway patent. NECK: Trachea midline. No JVD or lymphadenopathy. Supple, nontender, no meningeal signs. CARDIOVASCULAR: Regular rate and rhythm without murmurs, gallops, or rubs. RESPIRATORY: Clear to auscultation. Breath sounds equal bilaterally. No wheezes , rales, or rhonchi. GASTROINTESTINAL: Abdomen soft, non-tender, nondistended. No hepato-splenomegaly , or palpable masses. No guarding. MUSCULOSKELETAL: mild swelling of the left foot- sutures in place over the left second interspace. NEUROLOGICAL: Awake and alert. Cranial nerves II through XII intact. Motor and sensory grossly within normal limits. Five out of 5 muscle strength in all muscle groups. Normal speech. Laboratory Laboratory Tests Test 08/18/16 08/18/16 08/18/16 00:30 00:40 05:18 Urine Color YELLOW Urine Turbidity SLIGHT Urine pH 6.0 Urine Specific [place] 1.006 Urine Protein NEG Urine Glucose (UA) NEG Urine Ketones NEG Urine Occult Blood NEG Urine Nitrite NEG Urine Bilirubin NEG Urine Leukocyte Esterase SMALL Urine RBC 0-3 Urine WBC 9-14 Urine Squamous Epithelial 0-5 Cells Microscopic Urinalysis Comment CULTURE INDICATED White Blood Count 8.4 Red Blood Count 3.87 Hemoglobin 11.2 Hematocrit 34.9 Mean Corpuscular Volume 90.1 Mean Corpuscular Hemoglobin 28.9 Mean Corpuscular Hemoglobin 32.1 Concent Red Cell Distribution Width 13.8 Platelet Count 122 Mean Platelet Volume 9.1 Neutrophils (%) (Auto) 69.1 Lymphocytes (%) (Auto) 17.1 Monocytes (%) (Auto) 7.5 Eosinophils (%) (Auto) 2.1 Basophils (%) (Auto) 4.2 Neutrophils # (Auto) 5.8 Lymphocytes # (Auto) 1.4 Monocytes # (Auto) 0.6 Eosinophils # (Auto) 0.2 Basophils # (Auto) 0.4 CBC Comment DIFF FINAL Differential Comment Sodium Level 140 Potassium Level 4.9 Chloride Level 107 Carbon Dioxide Level 24.3 Anion Gap 9 Blood Urea Nitrogen 22 Creatinine 0.97 Estimat Glomerular Filtration 57 Rate Random Glucose 94 Calcium Level 9.2 Total Bilirubin 1.0 Aspartate Amino Transf 39 (AST/SGOT) Alanine Aminotransferase 34 (ALT/SGPT) Alkaline Phosphatase 98 Total Protein 8.4 Albumin 3.9 Troponin I LESS THAN 0.02 Date/Time Procedure Status Source Growth 08/18/16 00:30 Urine Culture Received Urine Clean Catch Pending Result Diagram: 08/18/163908/18/160 Assessment and Plan Assessment and Plan A/P - cellulitis of the left foot- s/p recent Zavala's neuroma removal continue with IV antibiotics- keep the left foot elevated- follow the cultures from the first ER visit -diabetes mellitus; continue with accu-check with SSI -hypertension; resumed home meds -hypothyroidism; resumed home meds -history of anal cancer- s/p colostomy- f/u as outpatient -DVT prophylaxis with lovenox Discussed Condition With the patient. Problem Qualifiers (1) Cellulitis: Qualified Code: L03.032 - Cellulitis of toe of left foot Marlin Aguayo MD August 18, 2016 09:16
[2016-08-18] MEDS: ENOXAPARIN SODIUM 40 MG/0.4 ML SYRINGE SQ SCH (10:00)
[2016-08-18] MEDS: LEVOTHYROXINE SODIUM 25 MCG TAB PO SCH (10:23)
[2016-08-18] MEDS: PRAMIPEXOLE DIHYDROCHLORIDE 1 MG TAB PO SCH ×2 (10:24→20:28)
[2016-08-18] MEDS: DOCUSATE SODIUM 50 MG/SENNA 8.6 MG TAB PO SCH ×2 (10:24→20:28)
[2016-08-18] MEDS: CHOLECALCIFEROL (VIT D3) 1000 UNIT TAB PO SCH (10:24)
[2016-08-18] MEDS: LEVOTHYROXINE SODIUM 112 MCG TAB PO SCH (10:24)
[2016-08-18] MEDS: metFORMIN HCL 500 MG TAB PO SCH (10:24)
[2016-08-18] MEDS: CYANOCOBALAMIN 1,000 MCG TAB PO SCH (10:25)
[2016-08-18] MEDS: LISINOPRIL 20 MG TAB PO SCH (10:25)
--- NOTE | 2016-08-18 11:20 | EKG ---
Date Performed: 08/18/2016 Time Performed: 05:00:50 PTAGE: 66 years EKG: Sinus bradycardia Leftward axis Left ventricular hypertrophy by voltage only Abnormal ECG NO PREVIOUS TRACING DOCTOR: Maxi Moody Interpretating Date/Time 08/18/2016 11:18:57
[2016-08-18] MEDS: ACETAMINOPHEN/HYDROcodone 325 MG/10 MG TAB PO PRN ×3 (11:40→20:29)
[2016-08-18] MEDS: GABAPENTIN 100 MG CAP PO SCH (20:27)
[2016-08-18] MEDS: hydrALAZINE HCL 50 MG TAB PO SCH (20:28)
[2016-08-18] MEDS ORDERED: VANCOMYCIN INJ 1,400 MG in SODIUM CHLORID 0.9% 500 ML INJ 500 ML IV SCH (21:00)
[2016-08-18] MEDS: ZOLPIDEM TARTRATE 10 MG TAB PO PRN (22:39)
[2016-08-19] VITALS (7 sets, daily range): BP systolic 143–190; BP diastolic 68–99; PULSE 49–56; RESP 15–20; TEMP 97.5–98.4; O2SAT 94–98
[2016-08-19] MEDS ORDERED: VANCOMYCIN INJ 1,400 MG in SODIUM CHLORID 0.9% 500 ML INJ 500 ML IV SCH ×2
[2016-08-19] MEDS: CEFEPIME INJ 1,000 MG in SODIUM CHLORIDE 0.9% INJ 100 ML IV SCH (00:13)
[2016-08-19] MEDS: ACETAMINOPHEN/HYDROcodone 325 MG/10 MG TAB PO PRN ×4 (04:51→20:23)
[2016-08-19] MEDS: LEVOTHYROXINE SODIUM 112 MCG TAB PO SCH ×2 (04:51→10:30)
[2016-08-19] MEDS: INSULIN ASPART SUPPLEMENTAL SCALE SQ SCH ×4 (04:53→20:27)
[2016-08-19] MEDS: LEVOTHYROXINE SODIUM 25 MCG TAB PO SCH ×2 (04:57→10:30)
[2016-08-19 06:36] LABS: AUTOMATED NEUTROPHIL # 4.3 TH/MM3 (1.8-7.7); BASOPHIL % 0.8 % (0.0-2.0); EOSINOPHIL # 0.2 TH/MM3 (0-0.4); EOSINOPHIL % 2.7 % (0.0-4.0); HEMATOCRIT 32.6 % (35.0-46.0); HEMO FLAGS DIFF FINAL; LYMPH % 18.4 % (9.0-44.0); LYMPHOCYTE # 1.1 TH/MM3 (1.0-4.8); MEAN CELL VOLUME 87.9 FL (80.0-100.0); MEAN CORPUSCULAR HEMOGLOBIN 29.7 PG (27.0-34.0); MEAN CORPUSCULAR HGB CONC 33.8 % (32.0-36.0); MONO % 8.5 % (0.0-8.0); NEUT % 69.6 % (16.0-70.0); PLATELET COUNT 176 TH/MM3 (150-450); RED BLOOD COUNT 3.71 MIL/MM3 (4.00-5.30); RED CELL DISTRIBUTION WIDTH 12.7 % (11.6-17.2); WHITE BLOOD COUNT 6.1 TH/MM3 (4.0-11.0)
[2016-08-19 07:05] LABS: ALKALINE PHOSPHATASE 99 U/L (45-117); ALT (GPT) 29 U/L (10-53); ANION GAP 6 MEQ/L (5-15); AST (GOT) 21 U/L (15-37); BICARBONATE 26.7 MEQ/L (21.0-32.0); BLOOD UREA NITROGEN 18 MG/DL (7-18); CHLORIDE 110 MEQ/L (98-107); GLOMERULAR FILTRATION RATE 75 ML/MIN (>89); POTASSIUM 4.1 MEQ/L (3.5-5.1); SODIUM (NA) 143 MEQ/L (136-145)
--- NOTE | 2016-08-19 08:32 | EKG ---
Date Performed: 08/18/2016 Time Performed: 11:45:24 PTAGE: 66 years EKG: Sinus bradycardia Leftward axis Abnormal ECG PREVIOUS TRACING : 08/18/2016 05.00 No significant change from previous tracing noted. DOCTOR: Freddy Torres Interpretating Date/Time 08/19/2016 08:31:02
[2016-08-19] MEDS: SODIUM CHLORIDE 0.9% FLUSH 10 ML FLUSH IV FLUSH SCH ×2 (09:00→20:22)
--- NOTE | 2016-08-19 09:15 | HHI.PR ---
Subjective Remarks resting comfortably with no distress. no fever. complaining of moderate pain to the left foot. d/w the RN. Objective Vitals Vital Signs Date Time Temp Pulse Resp B/P Pulse Ox O2 Delivery O2 Flow Rate FiO2 08/19/16 08:00 97.5 52 19 189/87 94 08/19/16 04:00 98.4 56 20 183/99 96 08/19/16 00:00 98.3 51 20 184/84 96 08/18/16 20:00 56 08/18/16 20:00 96.0 52 20 191/75 96 08/18/16 18:23 18 08/18/16 16:00 96.3 54 20 136/71 96 08/18/16 12:09 96.8 49 19 150/79 98 I/O 08/18/16 08/18/16 08/18/16 08/19/16 08/19/16 08/19/16 07:00 15:00 23:00 07:00 15:00 23:00 Intake Total 600 ml 100 ml 240 ml 756 ml Output Total 0 ml Balance 600 ml 100 ml 240 ml 756 ml Intake Oral 240 ml 60 ml IV Total 600 ml 100 ml 696 ml Output Stool Total 0 ml # Voids 4 4 # Bowel Movements 0 Result Diagram: 08/19/16 0532 08/19/16 0532 Objective Remarks GENERAL: This is a well-nourished, well-developed patient, in no apparent distress. CARDIOVASCULAR: Regular rate and regular rhythm without murmurs, gallops, or rubs. RESPIRATORY: Clear to auscultation. Breath sounds equal bilaterally. No wheezes , rales, or rhonchi. GASTROINTESTINAL: Abdomen soft, non-tender, nondistended. Normal, active bowel sounds MUSCULOSKELETAL: Extremities without clubbing, cyanosis, or edema. NEURO: Alert & Oriented x4 to person, place, time, situation. Moves all ext x4 skin; erythema and discharge at the site of the surgery on the left foot-no significant improvement Procedures none Medications and IVs Current Medications Vancomycin HCl/ Sodium Chloride (Vancomycin Inj/ NS 500 ml Inj) 517.5 ml @ 258.75 mls/ hr ONCE ONCE IV Last administered on 08/18/16t 02:23; Start at 00:30; Stop 08/18/16 at 02:29; Status DC Sodium Chloride (NS Flush) 2 ml UNSCH PRN IV FLUSH FLUSH AFTER USING IV ACCESS ; Start 08/18/16 at 00:30 Sodium Chloride (NS Flush) 2 ml BID IV FLUSH Last administered on 08/18/16 20: 29; Start 08/18/16 at 09:00 Ondansetron HCl (Zofran Inj) 4 mg Q6H PRN IVP NAUSEA OR VOMITING; Start at 00:30 Acetaminophen (Tylenol) 650 mg Q6H PRN PO FEVER/PAIN SCALE 1 TO 2; Start at 00:30 Acetaminophen/ Hydrocodone Bitart ([place] 5-325 Mg) 1 tab Q4H PRN PO PAIN SCALE 3 TO 5 Last administered on 08/18/16 02:26; Start 08/18/16 at 00:30 Acetaminophen/ Hydrocodone Bitart ([place] 10-325 Mg) 1 tab Q4H PRN PO PAIN SCALE 6 TO 10 Last administered on 08/19/16 04:51; Start 08/18/16 at 00:30 Senna/Docusate Sodium ([place]anna-Colace) 1 tab BID PO Last administered on 20:28; Start 08/18/16 at 09:00 Magnesium Hydroxide (Milk Of Magnesia Liq) 30 ml Q12H PRN PO MILD - MODERATE CONSTIPATION; Start 08/18/16 at 00:30 Sennosides (Senokot) 17.2 mg Q12H PRN PO MODERATE - SEVERE CONSTIPATION; Start 08/18/16 at 00:30 Bisacodyl (Dulcolax Supp) 10 mg DAILY PRN RECTAL SEVERE CONSITIPATION; Start at 00:30 Lactulose (Lactulose Liq) 30 ml DAILY PRN PO SEVERE CONSITIPATION; Start at 00:30 Amlodipine Besylate (Norvasc) 10 mg DAILY PO Last administered on 08/18/16 10: 25; Start 08/18/16 at 09:00 Cholecalciferol (Vitamin D3) 1,000 units DAILY PO Last administered on 10:24; Start 08/18/16 at 09:00 Cyanocobalamin (Vitamin B12) 1,000 mcg DAILY PO Last administered on 08/18/16 10:25; Start 08/18/16 at 09:00 Gabapentin (Neurontin) 300 mg HS PO Last administered on 08/18/16 20:27; Start 08/18/16 at 21:00 Hydralazine HCl (Apresoline) 100 mg BID PO Last administered on 08/18/16 09:00 ; Start 08/18/16 at 09:00; Stop 08/18/16 at 14:40; Status DC Metformin HCl (Glucophage) 500 mg DAILY PO Last administered on 08/18/16 10:24 ; Start 08/18/16 at 09:00 Pramipexole Dihydrochloride (Mirapex) 1 mg BID PO Last administered on 20:28; Start 08/18/16 at 09:00 Zolpidem Tartrate (Ambien) 10 mg HS PRN PO INSOMNIA Last administered on 22:39; Start 08/18/16 at 00:30 Lisinopril (Prinivil) 40 mg DAILY PO BPM Last administered on 08/18/16 10:25; Start 08/18/16 at 09:00 Non-Formulary Medication 1 cap DAILY PO NS; Start 08/18/16 at 09:00; Stop at 09:00; Status DC Levothyroxine Sodium (Synthroid) 112 mcg DAILY@07 PO Last administered on 04:51; Start 08/18/16 at 07:00 Dextrose (D50w (Vial) Inj) 50 ml UNSCH PRN IV HYPOGLYCEMIA-SEE COMMENTS; Start 08/18/16 at 00:30 Glucagon (Glucagon Inj) 1 mg UNSCH PRN OTHER HYPOGLYCEMIA-SEE COMMENTS; Start 08/18/16 at 00:30 Insulin Aspart 1 1 ACHS SLIDING SCALE SQ ; Start 08/18/16 at 07:00 Pharmacy Profile Note 0 ml @ 0 mls/hr UNSCH OTHER ; Start 08/18/16 at 00:30 Cefepime HCl/ Sodium Chloride (Maxipime Inj/NS Inj) 100 ml @ 200 mls/hr Q12H IV Last administered on 08/19/16 00:13; Start 08/18/16 at 00:30 Hydromorphone HCl (Dilaudid Pf Inj) 0.5 mg ONCE ONCE IVP Last administered on 08/18/16 00:53; Start 08/18/16 at 00:45; Stop 08/18/16 at 00:46; Status DC Ondansetron HCl (Zofran Inj) 4 mg ONCE ONCE IV Last administered on 08/18/16 00:52; Start 08/18/16 at 00:45; Stop 08/18/16 at 00:46; Status DC Levothyroxine Sodium 25 mcg 25 mcg DAILY@07 PO Last administered on 08/19/16 04:57; Start 08/18/16 at 07:00 Vancomycin HCl/ Sodium Chloride (Vancomycin Inj/ NS 500 ml Inj) 514 ml @ 250 mls/hr Q18H IV ; Start 08/18/16 at 21:00; Stop 08/18/16 at 21:00; Status DC Miscellaneous Information SPECIFIC LAB TO BE ENID... ONCE ONCE .XX ; Start 08/20 at 08:45; Stop 08/20/16 at 08:45; Status DC Vancomycin HCl/ Sodium Chloride (Vancomycin Inj/ NS 500 ml Inj) 514 ml @ 250 mls/hr Q18H IV Last administered on 08/19/16 00:13; Start 08/19/16 at 00:00 Miscellaneous Information SPECIFIC LAB TO BE ENID... ONCE ONCE .XX ; Start 08/20 at 11:45; Stop 08/20/16 at 11:46 Enoxaparin Sodium (Lovenox Inj) 40 mg Q24H SQ ; Start 08/18/16 at 10:00 Hydralazine HCl (Apresoline) 100 mg BID PO Last administered on 08/18/16 20:28 ; Start 08/18/16 at 21:00 A/P Assessment and Plan A/P - cellulitis of the left foot- s/p recent Zavala's neuroma removal- no significant change wound culture from the first ER visit with MSSA- dc Vanco and cefepime and start on clindamycin- keep the left foot elevated- will consult . -diabetes mellitus; continue with accu-check with SSI -hypertension; resumed home meds- vasotec prn- will monitor and adjust the regimen as needed. -hypothyroidism; resumed home meds -history of anal cancer- s/p colostomy- f/u as outpatient -DVT prophylaxis with lovenox Marlin Aguayo MD August 19, 2016 09:15
[2016-08-19] MEDS ORDERED: ENALAPRILAT 1.25 MG/ML VIAL IV PUSH PRN (09:30)
[2016-08-19] MEDS: CYANOCOBALAMIN 1,000 MCG TAB PO SCH (10:31)
[2016-08-19] MEDS: hydrALAZINE HCL 50 MG TAB PO SCH ×2 (10:31→20:22)
[2016-08-19] MEDS: CHOLECALCIFEROL (VIT D3) 1000 UNIT TAB PO SCH (10:31)
[2016-08-19] MEDS: DOCUSATE SODIUM 50 MG/SENNA 8.6 MG TAB PO SCH ×2 (10:31→20:22)
[2016-08-19] MEDS: LISINOPRIL 20 MG TAB PO SCH (10:31)
[2016-08-19] MEDS: metFORMIN HCL 500 MG TAB PO SCH (10:31)
[2016-08-19] MEDS: ENOXAPARIN SODIUM 40 MG/0.4 ML SYRINGE SQ SCH (10:31)
[2016-08-19] MEDS: PRAMIPEXOLE DIHYDROCHLORIDE 1 MG TAB PO SCH ×2 (10:32→20:23)
[2016-08-19] MEDS: CLINDAMYCIN INJ 600 MG in SODIUM CHLORIDE 0.9% INJ 100 ML IV SCH ×2 (12:34→17:53)
--- NOTE | 2016-08-19 17:09 | PD.POD.CON ---
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 When the patient was seen 3 days postop she was healing well without problems. Patient confessed to me that last day she climbed a ladder and was cleaning the gutters on her house and got her bandage wet. She removed her bandage and changed it herself. She started to have redness and swelling in the area went to the [facility] ER he was started on 2 antibiotics. Culture was obtained and grew out staph aureus. She returned 2 days ago with a worse infection and was admitted. Currently she is on clindamycin. Consult Requested by Dr. Mueller Reason for Consult Evaluation and treatment of postoperative wound infection left foot Primary Care Physician Nitza Short MD History of Present Illness 58 year year-old female diet-controlled diabetic with a postoperative infection of the left second interspace Coded Allergies: *MDRO Multi-Drug Resistant Organism (Verified Allergy, Unknown, 08/17/16) 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 Vital Signs Date Time Temp Pulse Resp B/P Pulse Ox O2 Delivery O2 Flow Rate FiO2 08/19/16 16:00 97.6 49 20 151/74 95 08/19/16 15:51 18 08/19/16 13:22 97.8 55 15 143/68 95 08/19/16 12:00 97.8 55 20 143/68 95 08/19/16 08:00 97.5 52 19 189/87 94 08/19/16 04:00 98.4 56 20 183/99 96 08/19/16 00:00 98.3 51 20 184/84 96 08/18/16 20:00 56 08/18/16 20:00 96.0 52 20 191/75 96 Pain scale used: 0-10 numeric scale Pain score: 6 Past, Family & Social History Past Medical History Endocrine: REPORTS HX OF: Diabetes mellitus, Hypothyroidism Cardiovascular: REPORTS HX OF: Hypertension Musculoskeletal: REPORTS HX OF: Fibromyalgia, Gout Cancer/Hematology: REPORTS HX OF: Other cancer/hematology Infectious disease: REPORTS HX OF: Chickenpox, Measles Neurologic: REPORTS HX OF: Peripheral neuropathy Past Surgical History Gastrointestinal: REPORTS HX OF: Cholecystectomy, Colectomy, subtotal, Other GI surgery (anal ), DENIES HX OF: Colectomy, total Gynecologic: REPORTS HX OF: Hysterectomy Breast: REPORTS HX OF: Breast biopsy, Lumpectomy, DENIES HX OF: Mastectomy, bilateral, Mastectomy, left, Mastectomy, right Family Medical History Diabetes mellitus G8 MOTHER, , Age:76 FH: congestive heart failure G8 MOTHER, , Age:76 Hypertension G8 MOTHER, , Age:76 Substance Use Substance use: Other Review of Systems Notes Redness and swelling of the right second interspace Constitutional: COMPLAINS OF: Pain Exam-Podiatry Constitutional General appearance: comfortable Nutritional status: normal Orientation: alert and oriented x3 Dermatological Exam Skin Temp - Right: Within Normal Limits Skin Texture - Right: Within Normal Limits Skin Elasticity - Right: Within Normal Limits Skin Tugor - Right: Within Normal Limits Hair Growth - Right: Within Normal Limits Pigmentation - Right: Within Normal Limits Skin Temp - Left: Within Normal Limits Skin Texture - Left: Within Normal Limits Skin Elasticity - Left: Within Normal Limits Skin Tugor - Left: Within Normal Limits Hair Growth - Left: Within Normal Limits Pigmentation - Left: Within Normal Limits Other: Scars, Surgery,Injury Redness and swelling of the second interspace left foot. Dehiscence of wound. No ascending cellulitis seen. Vascular/Lymphatic Exam R Dorsails Pedis: Palpable L Dorsails Pedis: Palpable R Posterior Tibial: Palpable L Posterior Tibial: Palpable Neurologic Exam Details No neurological deficit Muscle Strength Dorsiflexion (Right): Normal Plantarflexion (Right): Normal Inversion (Right): Normal Eversion (Right): Normal Digital (Right): Normal Dorsiflexion (Left): Normal Plantarflexion (Left): Normal Inversion (Left): Normal Eversion (Left): Normal Digital (Left): Normal Foot Range of Motion Dorsiflexion (Right): Normal Plantarflexion (Right): Normal Inversion (Right): Normal Eversion (Right): Normal Digital (Right): Normal Dorsiflexion (Left): Normal Plantarflexion (Left): Normal Inversion (Left): Normal Eversion (Left): Normal Digital (Left): Normal Lab and Radiology Results Laboratory Laboratory Tests Test 08/18/16 08/19/16 00:40 05:32 White Blood Count 8.4 TH/MM3 6.1 TH/MM3 Red Blood Count 3.87 MIL/MM3 3.71 MIL/MM3 Hemoglobin 11.2 GM/DL 11.0 GM/DL Hematocrit 34.9 % 32.6 % Mean Corpuscular Volume 90.1 FL 87.9 FL Mean Corpuscular Hemoglobin 28.9 PG 29.7 PG Mean Corpuscular Hemoglobin 32.1 % 33.8 % Concent Red Cell Distribution Width 13.8 % 12.7 % Platelet Count 122 TH/MM3 176 TH/MM3 Mean Platelet Volume 9.1 FL 9.6 FL Neutrophils (%) (Auto) 69.1 % 69.6 % Lymphocytes (%) (Auto) 17.1 % 18.4 % Monocytes (%) (Auto) 7.5 % 8.5 % Eosinophils (%) (Auto) 2.1 % 2.7 % Basophils (%) (Auto) 4.2 % 0.8 % Neutrophils # (Auto) 5.8 TH/MM3 4.3 TH/MM3 Lymphocytes # (Auto) 1.4 TH/MM3 1.1 TH/MM3 Monocytes # (Auto) 0.6 TH/MM3 0.5 TH/MM3 Eosinophils # (Auto) 0.2 TH/MM3 0.2 TH/MM3 Basophils # (Auto) 0.4 TH/MM3 0.0 TH/MM3 CBC Comment DIFF FINAL DIFF FINAL Differential Comment Laboratory Tests Test 08/18/16 08/18/16 08/18/16 08/18/16 00:40 05:18 13:20 21:10 Sodium Level 140 MEQ/L Potassium Level 4.9 MEQ/L Chloride Level 107 MEQ/L Carbon Dioxide Level 24.3 MEQ/L Anion Gap 9 MEQ/L Blood Urea Nitrogen 22 MG/DL Creatinine 0.97 MG/DL Estimat Glomerular Filtration 57 ML/MIN Rate Random Glucose 94 MG/DL Calcium Level 9.2 MG/DL Total Bilirubin 1.0 MG/DL Aspartate Amino Transf 39 U/L (AST/SGOT) Alanine Aminotransferase 34 U/L (ALT/SGPT) Alkaline Phosphatase 98 U/L Total Protein 8.4 GM/DL Albumin 3.9 GM/DL Troponin I LESS THAN 0.02 LESS THAN 0.02 LESS THAN 0.02 NG/ML NG/ML NG/ML Test 08/19/16 05:32 Sodium Level 143 MEQ/L Potassium Level 4.1 MEQ/L Chloride Level 110 MEQ/L Carbon Dioxide Level 26.7 MEQ/L Anion Gap 6 MEQ/L Blood Urea Nitrogen 18 MG/DL Creatinine 0.77 MG/DL Estimat Glomerular Filtration 75 ML/MIN Rate Random Glucose 85 MG/DL Calcium Level 8.9 MG/DL Total Bilirubin 1.0 MG/DL Aspartate Amino Transf 21 U/L (AST/SGOT) Alanine Aminotransferase 29 U/L (ALT/SGPT) Alkaline Phosphatase 99 U/L Total Protein 7.2 GM/DL Albumin 3.3 GM/DL Microbiology Date/Time Procedure Status Source Growth 08/18/16 00:30 Urine Culture - Final Complete Urine Clean Catch 50-100,000 CFU/ML MIXED GRAM POSITIVE... Assessment/Plan Problem List: (1) Cellulitis of left foot Status: Acute Additional Plans & Procedures PLAN: Remaining sutures were removed. Incision was packed with Maxorb extra AG. We' ll order dressing changes every other day. The patient is stable she can be discharged home on oral antibiotics and I will follow her my office. We'll follow for now Macario Harrison DPM August 19, 2016 17:09
[2016-08-19] MEDS: GABAPENTIN 100 MG CAP PO SCH (20:23)
[2016-08-19] MEDS: ZOLPIDEM TARTRATE 10 MG TAB PO PRN (21:39)
[2016-08-20] VITALS: BP 176/85; PULSE 55; RESP 20; TEMP 98; O2SAT 96
[2016-08-20] MEDS: CLINDAMYCIN INJ 600 MG in SODIUM CHLORIDE 0.9% INJ 100 ML IV SCH (02:07)
[2016-08-20 04:00] VITALS: BP 173/81; PULSE 53; RESP 18; TEMP 96.9; O2SAT 95
[2016-08-20] MEDS: INSULIN ASPART SUPPLEMENTAL SCALE SQ SCH (05:29)
[2016-08-20 07:54] VITALS: BP 192/86; PULSE 52; RESP 16; TEMP 96.7; O2SAT 98
[2016-08-20 08:45] VITALS: BP 160/75; PULSE 54
[2016-08-20] MEDS ORDERED: PHARMACY ORDERED LAB ONE ×2 (08:45→11:45)
--- NOTE | 2016-08-20 08:46 | HHI.FF ---
Face to Face Verification Diagnosis: (1) Colostomy in place (2) Cellulitis of left foot Home Health Nursing Order: Medical education Signs/symptoms of disease process Wound care and dressing changes Nursing assessment with vital signs Instructions: colostomy care. I have seen patient Chasity Leblanc on 08/20/16. My clinical findings support the need for the requested home health care services because: Ltd mobility - disease progression I certify that my clinical findings support that this patient is homebound because: Post-op weakness Marlin Aguayo MD August 20, 2016 08:46
--- NOTE | 2016-08-20 08:48 | HHI.PR ---
Subjective Remarks in no acute distress. no fever. has some pain to the left foot. otherwise no other complaints. Objective Vitals Vital Signs Date Time Temp Pulse Resp B/P Pulse Ox O2 Delivery O2 Flow Rate FiO2 08/20/16 07:54 96.7 52 16 192/86 98 08/20/16 04:00 96.9 53 18 173/81 95 08/20/16 00:00 98.0 55 20 176/85 96 08/19/16 20:00 51 08/19/16 20:00 97.8 50 20 190/89 98 08/19/16 16:00 97.6 49 20 151/74 95 08/19/16 15:51 18 08/19/16 13:22 97.8 55 15 143/68 95 08/19/16 12:00 97.8 55 20 143/68 95 I/O 08/19/16 08/19/16 08/19/16 08/20/16 08/20/16 08/20/16 07:00 15:00 23:00 07:00 15:00 23:00 Intake Total 756 ml 721 ml 60 ml Balance 756 ml 721 ml 60 ml Intake Oral 60 ml 480 ml 60 ml IV Total 696 ml 241 ml # Voids 4 2 4 3 # Bowel Movements 0 0 Result Diagram: 08/19/16 0532 08/19/16 0532 Objective Remarks GENERAL: This is a well-nourished, well-developed patient, in no apparent distress. CARDIOVASCULAR: Regular rate and regular rhythm without murmurs, gallops, or rubs. RESPIRATORY: Clear to auscultation. Breath sounds equal bilaterally. No wheezes , rales, or rhonchi. GASTROINTESTINAL: Abdomen soft, non-tender, nondistended. Normal, active bowel sounds MUSCULOSKELETAL: left foot covered with clean dressing. NEURO: Alert & Oriented x4 to person, place, time, situation. Moves all ext x4 Procedures none Medications and IVs Current Medications Vancomycin HCl/ Sodium Chloride (Vancomycin Inj/ NS 500 ml Inj) 517.5 ml @ 258.75 mls/ hr ONCE ONCE IV Last administered on 08/18/16t 02:23; Start at 00:30; Stop 08/18/16 at 02:29; Status DC Sodium Chloride (NS Flush) 2 ml UNSCH PRN IV FLUSH FLUSH AFTER USING IV ACCESS ; Start 08/18/16 at 00:30 Sodium Chloride (NS Flush) 2 ml BID IV FLUSH Last administered on 08/19/16 20: 22; Start 08/18/16 at 09:00 Ondansetron HCl (Zofran Inj) 4 mg Q6H PRN IVP NAUSEA OR VOMITING; Start at 00:30 Acetaminophen (Tylenol) 650 mg Q6H PRN PO FEVER/PAIN SCALE 1 TO 2; Start at 00:30 Acetaminophen/ Hydrocodone Bitart ([place] 5-325 Mg) 1 tab Q4H PRN PO PAIN SCALE 3 TO 5 Last administered on 08/18/16 02:26; Start 08/18/16 at 00:30 Acetaminophen/ Hydrocodone Bitart ([place] 10-325 Mg) 1 tab Q4H PRN PO PAIN SCALE 6 TO 10 Last administered on 08/19/16 20:23; Start 08/18/16 at 00:30 Senna/Docusate Sodium (Breanna-Colace) 1 tab BID PO Last administered on 20:22; Start 08/18/16 at 09:00 Magnesium Hydroxide (Milk Of Magnesia Liq) 30 ml Q12H PRN PO MILD - MODERATE CONSTIPATION; Start 08/18/16 at 00:30 Sennosides (Senokot) 17.2 mg Q12H PRN PO MODERATE - SEVERE CONSTIPATION; Start 08/18/16 at 00:30 Bisacodyl (Dulcolax Supp) 10 mg DAILY PRN RECTAL SEVERE CONSITIPATION; Start at 00:30 Lactulose (Lactulose Liq) 30 ml DAILY PRN PO SEVERE CONSITIPATION; Start at 00:30 Amlodipine Besylate (Norvasc) 10 mg DAILY PO Last administered on 08/19/16 10: 32; Start 08/18/16 at 09:00 Cholecalciferol (Vitamin D3) 1,000 units DAILY PO Last administered on 10:31; Start 08/18/16 at 09:00 Cyanocobalamin (Vitamin B12) 1,000 mcg DAILY PO Last administered on 08/19/16 10:31; Start 08/18/16 at 09:00 Gabapentin (Neurontin) 300 mg HS PO Last administered on 08/19/16 20:23; Start 08/18/16 at 21:00 Hydralazine HCl (Apresoline) 100 mg BID PO Last administered on 08/18/16 09:00 ; Start 08/18/16 at 09:00; Stop 08/18/16 at 14:40; Status DC Metformin HCl (Glucophage) 500 mg DAILY PO Last administered on 08/19/16 10:31 ; Start 08/18/16 at 09:00 Pramipexole Dihydrochloride (Mirapex) 1 mg BID PO Last administered on 20:23; Start 08/18/16 at 09:00 Zolpidem Tartrate (Ambien) 10 mg HS PRN PO INSOMNIA Last administered on 21:39; Start 08/18/16 at 00:30 Lisinopril (Prinivil) 40 mg DAILY PO BPM Last administered on 08/19/16 10:31; Start 08/18/16 at 09:00 Non-Formulary Medication 1 cap DAILY PO NS; Start 08/18/16 at 09:00; Stop at 09:00; Status DC Levothyroxine Sodium (Synthroid) 112 mcg DAILY@07 PO Last administered on 10:30; Start 08/18/16 at 07:00 Dextrose (D50w (Vial) Inj) 50 ml UNSCH PRN IV HYPOGLYCEMIA-SEE COMMENTS; Start 08/18/16 at 00:30 Glucagon (Glucagon Inj) 1 mg UNSCH PRN OTHER HYPOGLYCEMIA-SEE COMMENTS; Start 08/18/16 at 00:30 Insulin Aspart 1 1 ACHS SLIDING SCALE SQ ; Start 08/18/16 at 07:00 Pharmacy Profile Note 0 ml @ 0 mls/hr UNSCH OTHER ; Start 08/18/16 at 00:30; Stop 08/19/16 at 09:20; Status DC Cefepime HCl/ Sodium Chloride (Maxipime Inj/NS Inj) 100 ml @ 200 mls/hr Q12H IV Last administered on 08/19/16 00:13; Start 08/18/16 at 00:30; Stop at 09:19; Status DC Hydromorphone HCl (Dilaudid Pf Inj) 0.5 mg ONCE ONCE IVP Last administered on 08/18/16 00:53; Start 08/18/16 at 00:45; Stop 08/18/16 at 00:46; Status DC Ondansetron HCl (Zofran Inj) 4 mg ONCE ONCE IV Last administered on 08/18/16 00:52; Start 08/18/16 at 00:45; Stop 08/18/16 at 00:46; Status DC Levothyroxine Sodium 25 mcg 25 mcg DAILY@07 PO Last administered on 08/19/16 10:30; Start 08/18/16 at 07:00 Vancomycin HCl/ Sodium Chloride (Vancomycin Inj/ NS 500 ml Inj) 514 ml @ 250 mls/hr Q18H IV ; Start 08/18/16 at 21:00; Stop 08/18/16 at 21:00; Status DC Miscellaneous Information SPECIFIC LAB TO BE ENID... ONCE ONCE .XX ; Start 08/20 at 08:45; Stop 08/20/16 at 08:45; Status DC Vancomycin HCl/ Sodium Chloride (Vancomycin Inj/ NS 500 ml Inj) 514 ml @ 250 mls/hr Q18H IV Last administered on 08/19/16 00:13; Start 08/19/16 at 00:00; Stop 08/19/16 at 09:20; Status DC Miscellaneous Information SPECIFIC LAB TO BE ENID... ONCE ONCE .XX ; Start 08/20 at 11:45; Stop 08/20/16 at 11:46; Status Cancel Enoxaparin Sodium (Lovenox Inj) 40 mg Q24H SQ Last administered on 08/19/16 10 :31; Start 08/18/16 at 10:00 Hydralazine HCl 100 mg 100 mg BID PO Last administered on 08/19/16 20:22; Start 08/18/16 at 21:00 Clindamycin Phosphate/Sodium Chloride (Cleocin Inj/NS Inj) 104 ml @ 208 mls/hr Q8H IV Last administered on 08/20/16 02:07; Start 08/19/16 at 10:00 Enalaprilat (Vasotec Inj) 1.25 mg Q8H PRN IV PUSH SBP> OR = 180, DBP> OR = 100 Last administered on 5/30/17at 10:32; Start 08/19/16 at 09:30 A/P Assessment and Plan A/P - cellulitis of the left foot- s/p recent Zavala's neuroma removal- wound culture from the first ER visit with [facility]- dc'ed Vanco and cefepime and start on clindamycin- keep the left foot elevated- podiatry consult appreciated- f/u as outpatient. -diabetes mellitus; continue with accu-check with SSI -hypertension; resumed home meds- f/u as outpatient. -hypothyroidism; resumed home meds -history of anal cancer- s/p colostomy- f/u as outpatient -DVT prophylaxis with lovenox Discharge Planning dc home today with [facility]. see med list. f/u; pcp and podiatry. d/w the patient. Marlin Aguayo MD August 20, 2016 08:48
[2016-08-20] MEDS ORDERED: CLIN1CAP6 PO (08:50)
[2016-08-20] MEDS: CYANOCOBALAMIN 1,000 MCG TAB PO SCH (08:50)
[2016-08-20] MEDS: PRAMIPEXOLE DIHYDROCHLORIDE 1 MG TAB PO SCH (08:50)
[2016-08-20] MEDS ORDERED: HYDR-3534 PO (08:50)
--- NOTE | 2016-08-20 08:50 | HHI.DCPOC ---
Discharge Care Plan Diagnosis: (1) Cellulitis of left foot Your Health Problems Are: Inflammation Swelling Goals to Promote Your Health * To prevent worsening of your condition and complications * To maintain your health at the optimal level Directions to Meet Your Goals Take your medications as prescribed Follow your dietary instruction Follow activity as directed Keep your appointments as scheduled Take your immunizations and boosters as scheduled If your symptoms worsen call your PCP, if no PCP go to Urgent Care Center or Emergency Room Smoking is Dangerous to Your Health. Avoid second hand smoke Call the 24-hour hour crisis hotline for domestic abuse at Marlin Aguayo MD August 20, 2016 08:50
[2016-08-20] MEDS: metFORMIN HCL 500 MG TAB PO SCH (08:51)
[2016-08-20] MEDS: CHOLECALCIFEROL (VIT D3) 1000 UNIT TAB PO SCH (08:51)
[2016-08-20] MEDS: DOCUSATE SODIUM 50 MG/SENNA 8.6 MG TAB PO SCH (08:51)
--- NOTE | 2016-08-20 08:51 | HHI.DS ---
Discharge Summary Admission Date August 18, 2016 at 00:27 Discharge Date: August 20, 2016 Admitting Diagnosis cellulitis/lymphadenitis left foot, failure of outpatient therapy (1) Cellulitis ICD Code: L03.90 Diagnosis: Principal Procedures none Brief History - From Admission patient is a 66 y/o female with history of diabetes, s/p recent (08/08/16) Zavala 's neuroma removal from the left second interspace presented to ER with erythema and pain to the left foot. this is her second presentation to ER. she says that she was fine after the surgery till few days ago when she noticed some redness and swelling of the left foot. she came to ER and was prescribed bactrim and keflex and she was discharged home. she says that she took three doses of each but she noticed that the swelling and erythema was getting worse which made her to come to ER again. she reported some fever and chills at home. CBC/BMP: 08/19/16 0532 08/19/16 0532 Significant Findings Laboratory Tests Test 08/18/16 08/18/16 08/18/16 08/18/16 00:30 00:40 05:18 13:20 Urine Leukocyte Esterase SMALL (NEG) Urine WBC 9-14 /hpf (0-5) Red Blood Count 3.87 MIL/MM3 (4.00-5.30) Hemoglobin 11.2 GM/DL (11.6-15.3) Hematocrit 34.9 % (35.0-46.0) Platelet Count 122 TH/MM3 (150-450) Basophils (%) (Auto) 4.2 % (0.0-2.0) Basophils # (Auto) 0.4 TH/MM3 (0-0.2) Blood Urea Nitrogen 22 MG/DL (7-18) Estimat Glomerular Filtration 57 ML/MIN (>89) Rate Aspartate Amino Transf 39 U/L (15-37) (AST/SGOT) Total Protein 8.4 GM/DL (6.4-8.2) Troponin I LESS THAN 0.02 LESS THAN 0.02 NG/ML NG/ML (0.02-0.05) (0.02-0.05) Test 08/18/16 08/19/16 21:10 05:32 Troponin I LESS THAN 0.02 NG/ML (0.02-0.05) Red Blood Count 3.71 MIL/MM3 (4.00-5.30) Hemoglobin 11.0 GM/DL (11.6-15.3) Hematocrit 32.6 % (35.0-46.0) Monocytes (%) (Auto) 8.5 % (0.0-8.0) Chloride Level 110 MEQ/L (98-107) Estimat Glomerular Filtration 75 ML/MIN (>89) Rate Albumin 3.3 GM/DL (3.4-5.0) PE at Discharge GENERAL: This is a well-nourished, well-developed patient, in no apparent distress. CARDIOVASCULAR: Regular rate and regular rhythm without murmurs, gallops, or rubs. RESPIRATORY: Clear to auscultation. Breath sounds equal bilaterally. No wheezes , rales, or rhonchi. GASTROINTESTINAL: Abdomen soft, non-tender, nondistended. Normal, active bowel sounds MUSCULOSKELETAL: left foot covered with clean dressing. NEURO: Alert & Oriented x4 to person, place, time, situation. Moves all ext x4 Hospital Course - cellulitis of the left foot- s/p recent Zavala's neuroma removal- wound culture from the first ER visit with [facility]- dc'ed Vanco and cefepime and start on clindamycin- keep the left foot elevated- podiatry consult appreciated- f/u as outpatient. -diabetes mellitus; continue with accu-check with SSI -hypertension; resumed home meds- f/u as outpatient. -hypothyroidism; resumed home meds -history of anal cancer- s/p colostomy- f/u as outpatient -DVT prophylaxis with lovenox Pt Condition on Discharge: Good Discharge Disposition: Disch w/ Home Health Serv Discharge Time: <= 30 minutes Discharge Instructions DIET: Follow Instructions for: Heart Healthy Diet, Diabetic Diet Activities you can perform: Regular-No Restrictions Follow up Referrals: PCP Follow-up Podiatry New Medications: Clindamycin (Clindamycin) 300 Mg Cap 300 MG PO Q6H Infection Days 7 Ref 0 CAP Continued Medications: Amlodipine (Amlodipine) 10 Mg Tab 10 MG PO DAILY Blood Pressure Management #30 Ref 6 TAB Benazepril (Benazepril) 40 Mg Tab 40 MG PO DAILY Blood Pressure Management #30 Ref 6 TAB Cholecalciferol (Vitamin D3) 1,000 Unit Cap 1000 UNITS PO DAILY Nutritional Supplement #1 Ref 0 BOTTLE Cyanocobalamin (Vitamin B-12) 1,000 Mcg Tab 1000 MCG PO DAILY Nutritional Supplement #1 Ref 0 BOTTLE Fish Oil-Cholecalciferol ([place]-3 Fish Oil/Vitamin) 1,000-1,000 Mg Cap 1 CAP PO DAILY Nutritional Supplement Ref 0 CAP Gabapentin (Gabapentin) 100 Mg Cap 300 MG PO HS #30 Ref 0 CAP Hydralazine (Hydralazine) 100 Mg Tab 100 MG PO BID Take with meals Blood Pressure Management #90 Ref 0 TAB Hydrocodone-Acetaminophen (Lortab) 7.5-325 Mg Tab 1 TAB PO Q4H PRN PAIN #10 Ref 0 TAB (This prescription has been renewed) Levothyroxine (Levothyroxine) 137 Mcg Tab 137 MCG PO DAILY Thyroid #90 Ref 1 TAB Metformin (Metformin) 500 Mg Tab 500 MG PO DAILY With a meal Blood Sugar Management #90 Ref 3 TAB Pramipexole (Mirapex) 1 Mg Tab 1 MG PO BID Parkinson Disease Mgmt #60 Ref 6 TAB Zolpidem (Zolpidem) 10 Mg Tab 10 MG PO HS PRN INSOMNIA #30 Ref 3 TAB Discontinued Medications: Cephalexin (Keflex) 250 Mg Cap 500 MG PO TID Infection Days 10 Ref 0 CAP Sulfamethoxazole-Trimethoprim (Bactrim DS) 800-160 Mg Tab 1 TAB PO BID Infection #20 Ref 0 TAB Marlin Aguayo MD August 20, 2016 08:51
[2016-08-20] MEDS: LISINOPRIL 20 MG TAB PO SCH (08:52)
[2016-08-20] MEDS: hydrALAZINE HCL 50 MG TAB PO SCH (08:52)
[2016-08-20] MEDS: SODIUM CHLORIDE 0.9% FLUSH 10 ML FLUSH IV FLUSH SCH (08:53)
[2016-09-05] MEDS ORDERED: ZOLP10TA3 PO (14:04)
[2016-09-05] MEDS ORDERED: GABA100C4 PO (14:04)
[2016-09-08] MEDS ORDERED: GABA100C4 PO (15:33)
== END 2016-08-20 11:10 | disposition home health service (06) ==
LOC: PHED 21:06 → PHEDA 08-18 00:27 → PHEDH 08-18 04:26 → PH3A 08-18 07:59
PROVIDERS: ADMIT Internal Medicine; ATTEND Internal Medicine
DX: L03.116 Cellulitis of left lower limb (principal); E11.9 Type 2 diabetes mellitus without complications; I10 Essential (primary) hypertension; E03.9 Hypothyroidism, unspecified; Z98.890 Other specified postprocedural states; Z85.048 Personal history of other malignant neoplasm of rectum, rectosigmoid junction, and anus; Z93.3 Colostomy status; Z79.84 Long term (current) use of oral hypoglycemic drugs
CPT/HCPCS: 80053; 81001; 82948; 84484; 85025; 87086; 87641; 93005; 99285; G0378; J0692; J1170; J1650; J2405; J3370; J7040

== ENCOUNTER 2017-06-10 13:08 | Emergency (ER) | payer MEDICARE, MEDICAID ==
[~2017-06-10] VITALS: Ht 167.6 cm; Wt 87.7 kg
[~2017-06-10 13:08] MED LIST changes: -BACT800T5 PO; -CEPH-459 PO; +CHOL10008 PO; +GABA100C4 PO; -GABA300C5 PO; +HYDR-3534 PO; -METF500T PO; -OMEG100037 PO; +OMEGCAP PO; -PRAM1 PO; +VITA10002 PO; -VITA100036 PO; -VITA100L BUCCAL
[2017-06-10 13:21] VITALS: BP 182/98; PULSE 58; RESP 18; TEMP 97.4; O2SAT 96
[2017-06-10] MEDS ORDERED: AMBI5TAB PO (14:07)
--- NOTE | 2017-06-10 14:30 | PD ---
HPI Chief Complaint: Edema Time Seen by Provider: 14:17 Travel History International Travel<30 days: No Contact w/Intl Traveler<30days: No Traveled to known affect area: No History of Present Illness HPI This 67-year-old female is complaining of pain in her right arm. He started noticing some swelling and pain in the right fourth finger a few days ago. In the shoulder seems to be hurting and it hurts particularly when she abducts the shoulder. She has not had fever or chills. She has had some pain in various fingers in the past. She has never been diagnosed with rheumatoid arthritis. She had a history of anal cancer 7 years ago and is thought to be cancer free. She was diabetic in the past but that has improved since she lost 80 pounds the last 2 years with walking and exercise. She is not having fever or chills. There is no history of trauma. PFSH Past Medical History Cancer: Yes (ANAL CA) Cardiac Catheterization: Yes Cardiovascular Problems: No High Cholesterol: Yes Diabetes: Yes Patient Takes Glucophage: No Diminished Hearing: No Endocrine: Yes Gastrointestinal Disorders: Yes (REFLUX, COLOSTOMY) Genitourinary: No Hepatitis: No Hiatal Hernia: No Hypertension: Yes Immune Disorder: No Implanted Vascular Access Dvce: No Medical other: No Musculoskeletal: Yes (OA) Neurologic: No Psychiatric: No Reproductive: No Respiratory: No Thyroid Disease: Yes Tetanus Vaccination: Unknown ?: Not Menopausal: Yes Past Surgical History Abdominal Surgery: Yes (COLOSTOMY (ANAL CA), CHOLECYSTECTOMY) AICD: No Cardiac Surgery: No Cholecystectomy: Yes Ear Surgery: No Endocrine Surgery: No Eye Surgery: Yes (BILATEAL CATARACTS) Genitourinary Surgery: No Gynecologic Surgery: Yes (HYSTERECTOMY) Hysterectomy: Yes Joint Replacement: No Neurologic Surgery: No Oral Surgery: No Pacemaker: No Thoracic Surgery: No Other Surgery: Yes (STENT TO KIDNEY) Social History Alcohol Use: Yes (FEW TIMES A WEEK) Tobacco Use: No Substance Use: No Allergies-Medications (Allergen,Severity, Reaction): Coded Allergies: *MDRO Multi-Drug Resistant Organism (Verified Allergy, Unknown, 06/10/17) 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 MRSA PCR Screen negative 10/02/14 & 08/19/16 Cleared per Infection Control Reported Meds & Prescriptions Reported Meds & Active Scripts Active Reported Ambien (Zolpidem Tartrate) 5 Mg Tab 5 Mg PO HS PRN Review of Systems General / Constitutional: No: Fever, Chills Eyes: No: Diploplia, Blurred Vision HENT: No: Headaches, Vertigo Cardiovascular: No: Chest Pain or Discomfort, Palpitations Respiratory: No: Cough Gastrointestinal: No: Nausea, Vomiting Genitourinary: No: Urgency Musculoskeletal: Positive: Myalgias, Arthralgias Neurologic: No: Weakness Physical Exam Narrative GENERAL: Well-developed female SKIN: Focused skin assessment warm/dry. HEAD: Atraumatic. Normocephalic. EYES: Pupils equal and round. No scleral icterus. No injection or drainage. ENT: No nasal bleeding or discharge. Mucous membranes pink and moist. NECK: Trachea midline. No JVD. CARDIOVASCULAR: Regular rate and rhythm. No murmur appreciated. RESPIRATORY: No accessory muscle use. Clear to auscultation. Breath sounds equal bilaterally. GASTROINTESTINAL: Abdomen soft, non-tender, nondistended. Hepatic and splenic margins not palpable. MUSCULOSKELETAL: No obvious deformities. No clubbing. No cyanosis. No edema. There is fusiform swelling of the PIP of the fourth finger on the right hand. There is diminished motion. There is some tenderness around the shoulder without erythema or warmth NEUROLOGICAL: Awake and alert. No obvious cranial nerve deficits. Motor grossly within normal limits. Normal speech. PSYCHIATRIC: Appropriate mood and affect; insight and judgment normal. Data Data Last Documented VS Vital Signs Date Time Temp Pulse Resp B/P (MAP) Pulse Ox O2 Delivery O2 Flow Rate FiO2 06/10/17 14:04 18 96 Room Air 06/10/17 13:21 97.4 58 182/98 (126) Orders Orders Hand, Complete ([id number]) (06/10/17 14:32) Shoulder, Complete (>2vws) (06/10/17 14:32) [facility] Medical Decision Making Medical Screen Exam Complete: Yes Emergency Medical Condition: Yes Medical Record Reviewed: Yes Differential Diagnosis Differential includes rheumatoid arthritis, osteoarthritis Narrative Course History of the hand was obtained and is negative x-ray of the shoulder was also negative. Patient may well have rheumatoid arthritis. I do not think lab work would be helpful at this time.. The importance that she follow-up with their own doctor is stressed. i do recommend that she take prednisone 60 mg a day for 3 days Diagnosis Primary Impression: Polyarthritis Scripts Ondansetron Odt (Zofran Odt) 4 Mg Tab 4 MG SL Q6HR Y for Nausea/Vomiting, #10 TAB 0 Refills Prov: Jonathan Armijo MD 06/10/17 Prednisone (Prednisone) 20 Mg Tab 40 MG PO DAILY for 2 Days, #4 TAB 0 Refills Take 40 mg (2 tablets) daily for 5 days Prov: Jonathan Armijo MD 06/10/17 Disposition: 01 DISCHARGE HOME Condition: Stable Jonathan Armijo MD Jun 10, 2017 14:30
--- NOTE | 2017-06-10 15:30 | RADRPT ---
EXAM DATE/TIME: 06/10/2017 15:01 [facility] COMPARISON: No previous studies available for comparison. INDICATIONS : Right hand pain, swelling for 1 week with no known injury MEDICAL HISTORY : None. SURGICAL HISTORY : None. ENCOUNTER: Initial ACUITY: 1 week PAIN SCORE: 10/10 LOCATION: Right entire hand FINDINGS: Three view examination of the right hand demonstrates no soft tissue swelling, dislocation, or fractu re. The carpal bones appear intact. Mild degenerative changes of the first carpometacarpal joint. J oint spaces are otherwise maintained. Bony mineralization is normal. CONCLUSION: 1. Mild degenerative osteoarthritis of the first carpometacarpal joint. 2. Otherwise, unremarkable radiographs of the right hand. Angel Riojas MD on June 10, 2017 at 15:27 Board Certified Radiologist. This report was verified electronically.
--- NOTE | 2017-06-10 15:31 | RADRPT ---
EXAM DATE/TIME: 06/10/2017 15:01 [facility] COMPARISON: No previous studies available for comparison. INDICATIONS : Right shoulder pain, swelling for 1 week with no known injury MEDICAL HISTORY : None. SURGICAL HISTORY : None. ENCOUNTER: Initial ACUITY: 1 week PAIN SCORE: 10/10 LOCATION: Right entire shoulder FINDINGS: Multiple view examination of the right shoulder demonstrates no evidence of fracture or dislocation. The glenohumeral and acromioclavicular joints are maintained. There is normal range of motion betwe en internal and external rotation. Bony mineralization is normal. CONCLUSION: 1. Unremarkable radiographs of the right shoulder. Angel Riojas MD on June 10, 2017 at 15:28 Board Certified Radiologist. This report was verified electronically.
[2017-06-10] MEDS ORDERED: PRED20 PO (15:50)
[2017-06-10] MEDS ORDERED: ZOFR4TAB3 SL (15:50)
[2017-06-10] MEDS ORDERED: ONDANSETRON ODT 4 MG TAB PO ONE (16:00)
[2017-06-10 16:07] VITALS: BP 200/92
[2017-06-10] MEDS ORDERED: predniSONE 20 MG TAB PO SCH (16:15)
[2017-06-11] MEDS ORDERED: predniSONE 20 MG TAB PO SCH (09:00)
== END 2017-06-10 16:25 | disposition home or self-care (01) ==
LOC: PHED 13:08
DX: M13.0 Polyarthritis, unspecified (principal); E78.00 Pure hypercholesterolemia, unspecified; E11.9 Type 2 diabetes mellitus without complications; I10 Essential (primary) hypertension; Z93.3 Colostomy status; Z85.048 Personal history of other malignant neoplasm of rectum, rectosigmoid junction, and anus; Z79.899 Other long term (current) drug therapy
CPT/HCPCS: 73030; 73130; 99284; J7512

== ENCOUNTER 2018-05-16 16:02 | Inpatient (IN) ==
[2018-05-16] MEDS ORDERED: Sod Chloride 0.9% Inj 1,000 ML IV.SIG ONE (16:22)
[2018-05-16] MEDS ORDERED: Hyoscyamine Liq Drops 0.125 MG/ML 15 ML Bottle SL ONE (16:24)
[2018-05-16] MEDS ORDERED: Morphine Sulfate Inj 2 MG/ML Vial IV.PUSH ONE (16:24)
--- NOTE | 2018-05-16 16:32 | ED ---
HPI General Chief Complaint: Abdominal Pain Stated Complaint: CHEMO/VOMITTING Time Seen by Provider: 05/16/18 16:18 Source: patient Mode of arrival: wheelchair Limitations: no limitations History of Present Illness HPI narrative: Patient presents with complaints of nausea vomiting and diarrhea. Vomiting bilious material, denies blood, unable to tolerate p.o. meds. Diarrhea is described as watery. Denies any blood per stool. Undergoing chemotherapy for ovarian cancer and bladder mass. Last episode of chemotherapy was . Symptoms started on Thursday. Reports poor fluid intake. Denies any chest pain shortness of breath or urinary symptoms. Denies any fever. History of partial hysterectomy many years ago. History of rectal cancer with colostomy bag in place. MD complaint: Reports abdominal pain Onset (ago): day(s) (2) Pain Consistency: constant Location: Reports diffuse Severity: severe Severity scale (1-10): 9 Quality: Reports cramping Radiation: Reports none Migration to: Reports no migration Relieving factors: nothing Exacerbating factors: eating Context: Reports other (Chemotherapy on ) Associated symptoms: Reports nausea, vomiting and diarrhea Treatments prior to arrival: Reports other (None, poor p.o. intake) Related Data Home Medications Medication Instructions Recorded Confirmed adalimumab [Humira Pen] 10 mg SUBCUT Q2W 04/02/18 05/16/18 folic acid 1 mg PO DAILY 04/02/18 05/16/18 gabapentin 600 mg PO HS 04/02/18 05/16/18 levothyroxine 100 mcg PO DAILY 04/02/18 05/16/18 methotrexate sodium 1 ml IM QWEEK 04/02/18 05/16/18 mirtazapine 15 mg PO HS 04/02/18 05/16/18 Previous Rx's Medication Instructions Recorded docusate sodium [DOK] 100 mg PO BID #60 cap 04/11/18 hydrocodone-acetaminophen 1 tab PO Q4H #42 tab 04/11/18 lisinopril 10 mg PO BID #60 tab 04/11/18 pantoprazole 40 mg PO DAILY #30 tab 04/11/18 polyethylene glycol 3350 17 gm PO DAILY #30 ea 04/11/18 sennosides [Senna Lax] 17.2 mg PO BID #60 tab 04/11/18 Allergies Allergy/AdvReac Type Severity Reaction Status Date / Time *MDRO Multi-Drug Resistant Allergy Unknown NA Uncoded 04/02/18 09:32 Organism Review of Systems ROS: all other systems reviewed are negative [facility] Medical History Medical History Cervical cancer (Acute) History of anal cancer (Acute) History of hypertension (Acute) History of hypothyroidism (Acute) History of rheumatoid arthritis (Acute) History of sleep disturbance (Acute) Surgical History Surgical History History of cholecystectomy (Acute) History of colostomy (Acute) History of hysterectomy (Acute) History of removal of Port-a-Cath (Acute) History of ureter repair (Acute) Family History Family History Father Cirrhosis of liver Mother Congestive heart failure (CHF) Mother Diabetes Social History Social History Substance History: No History of Abuse Second Hand Smoke Exposure: No Smoking Status: Never smoker How Often Do You Have a Drink Containing Alcohol: Never Recent Travel in [facility] within the Last 8 Weeks: No Recent Out of Country Travel within the Last 8 Weeks: No Exam Narrative Exam Narrative: GENERAL: Well-nourished, well-developed patient. SKIN: Focused skin assessment warm diaphoretic. HEAD: Normocephalic. EYES: No scleral icterus. No injection or drainage. NECK: Supple, trachea midline. No JVD or lymphadenopathy. CARDIOVASCULAR: Regular rate and rhythm without murmurs, gallops, or rubs. RESPIRATORY: Breath sounds equal bilaterally. No accessory muscle use. GASTROINTESTINAL: Abdomen soft, normal bowel sounds, diffusely tender, nondistended. Colostomy in place MUSCULOSKELETAL: No cyanosis, or edema. BACK: Nontender without obvious deformity. No CVA tenderness. Course Initial Documented Vital Signs Temperature 98.4 F 05/16/18 16:05 Pulse Rate 101 H 05/16/18 16:05 Respiratory Rate 18 05/16/18 16:05 Blood Pressure 218/109 H 05/16/18 16:05 Pulse Oximetry 96 05/16/18 16:05 Last Documented Vital Signs Temperature 98.4 F 05/16/18 16:15 Pulse Rate 98 H 05/16/18 16:15 Respiratory Rate 20 05/16/18 16:15 Blood Pressure 178/100 H 05/16/18 16:15 Pulse Oximetry 96 05/16/18 16:15 Sign Out Sign Out Data: Patient Sign Out occurred on 05/16/18 at 17:05. Patient's care was discussed, and care was transferred from Vernon Ray MD to Rosa Castro. Sign Out Comment: Patient discussed and reviewed Last updated by Vernon Ray MD at 05/16/18 16:48 Medical Decision Making MDM Narrative Medical decision making narrative: During the course of the patients emergency department visit, the patients history, examination, and differential diagnosis were reviewed with the patient. The patient was placed on a school bus monitor with oximetry and frequent blood pressure monitoring. The patient had an IV access obtained and blood work sent for analysis. Patient is a 68-year-old female with history of ovarian cancer with metastatic disease, currently being followed by Dr. Allen her oncologist as well as Dr. Savage her primary care doctor, presents the emergency room after she received her second round of chemotherapy on with intractable nausea and vomiting abdominal pain. Patient reports that she has not been able to keep anything down since , reports that he is abdominal pain, pain is worse to her left lower abdomen. Patient's blood work is significant for a white blood cell count of 25,700 with 14% bandemia. Patient was pancultured and was given a dose of vancomycin as well as Zosyn. Potassium was 3.3, she was given IV repletion of potassium. CT of the abdomen pelvis shows that there is anterior omental soft tissue thickening measuring 6.1 x 2.9 cm in the left anterior abdomen as well as patchy omental soft tissue thickening in the right lateral abdomen. There is no ascites, there is no drainable fluid. There is also multiloculated cystic mass in the central pelvis, differential includes ovarian malignancy or recurrence. There is also associated omental masses throughout the anterior abdomen consistent with metastatic disease which patient knows about already. I did review concerning findings on the CAT scan results, daughter as well as patient is aware of all findings including all incidental findings. Patient is still very uncomfortable, at this time, plan to admit her to the hospital as she does have SIRS criteria. patient will need IV fluids as well as antiemetics as well as cultures followed for infection case reviewed with Dr. Maddox who accepts pt to service Medical Screen Exam Complete: Yes Emergency Medical Condition: Yes Differential Diagnosis Differential Diagnosis: Viral gastroenteritis, radiation colitis, small bowel obstruction, ischemic bowel, metastases Medical Records Medical records reviewed: Yes I reviewed the patient's medical records. Lab Data Result diagrams: 05/16/18 16:50 05/16/18 16:50 Lab Results 05/16/18 05/16/18 05/16/18 Range/Units 16:50 16:50 16:50 CBC w Diff Slide review pending WBC 25.7 H (4.0-11.0) th/mm3 RBC 4.02 (4.00-5.30) mil/mm3 Hgb 12.1 (11.6-15.3) gm/dL Hct 36.9 (35.0-46.0) % MCV 91.8 (80.0-100.0) fL MCH 30.1 (27.0-34.0) pg MCHC 32.8 (32.0-36.0) % RDW 15.9 (11.6-17.2) % Plt Count 214 (150-450) th/mm3 MPV 9.7 (7.0-11.0) fL WBC Differential Manual diff final Seg Neuts % (Manual) 80 H (16-70) % Band Neuts % (Manual) 14 H (0-6) % Lymphocytes % (Manual) 5 L (9-44) % Monocytes % (Manual) 1 (0-8) % Abs Neuts (Manual) 24.2 H (1.8-7.7) th/mm3 Differential Comment . Platelet Estimate Normal (Normal) Platelet Morphology Normal (Normal) RBC Morphology Normal (Normal) Sodium 137 (136-145) meq/L Potassium 3.3 L (3.5-5.1) meq/L Chloride 101 (98-107) meq/L Carbon Dioxide 25.8 (21.0-32.0) meq/L Anion Gap 10 (5-15) meq/L BUN 25 H (7-18) mg/dL Creatinine 0.79 (0.50-1.00) mg/dL Estimated GFR 72 L (>89) mL/min Random Glucose 142 H (74-106) mg/dL Lactic Acid 1.9 (0.4-2.0) mmol/L Calcium 9.3 (8.5-10.1) mg/dL Magnesium 2.0 (1.5-2.5) mg/dL Total Bilirubin 1.3 H (0.2-1.0) mg/dL AST 27 (15-37) U/L ALT 25 (10-53) U/L Alkaline Phosphatase 109 (45-117) U/L Total Protein 8.4 H (6.4-8.2) g/dL Albumin 4.0 (3.4-5.0) g/dL Lipase 251 (73-393) U/L Imaging Data Radiologist's impression: Abdomen/Pelvis CT 05/16/18 16:22 CONCLUSION: 1. Multilocular cystic mass in the central pelvis with the dominant cystic portion measuring 12.1 x 10.3 cm. Differential considerations include ovarian malignancy or recurrence in this patient with history of cervical carcinoma. There is associated omental masses throughout the anterior abdomen consistent with metastatic disease. 2. Dominant 13 mm left retroperitoneal node and 15 mm left external iliac node also concerning for metastatic disease. 3. Additional ancillary findings, as above. ECG Data Attestation: I personally reviewed and interpreted this ECG as follows: Discharge Plan Discharge Disposition Patient Disposition: ED Admit(ED Internal Use Only) Discharge Condition Condition: Stable Discharge Details Diagnosis: SIRS (systemic inflammatory response syndrome), Intractable vomiting with nausea Physicians Team ED Provider: Rosa Castro Primary Care Provider: Maicol Valiente Rxs /Orders / Referrals /Forms Prescriptions: No Action gabapentin 600 mg Tablet 600 mg PO HS RF: 0 methotrexate sodium 25 mg/mL Solution 1 ml IM QWEEK RF: 0 levothyroxine 100 mcg Capsule 100 mcg PO DAILY RF: 0 folic acid 1 mg Tablet 1 mg PO DAILY RF: 0 mirtazapine 15 mg Tablet 15 mg PO HS RF: 0 adalimumab [Humira Pen] 40 mg/0.4 mL Pen Injector Kit 10 mg SUBCUT Q2W RF: 0 hydrocodone-acetaminophen 10-325 mg Tablet 1 tab PO Q4H Qty: 42 RF: 0 lisinopril 10 mg Tablet 10 mg PO BID Qty: 60 RF: 0 pantoprazole 40 mg Tablet,Delayed Release (Dr/Ec) 40 mg PO DAILY Qty: 30 RF: 0 sennosides [Senna Lax] 8.6 mg Tablet 17.2 mg PO BID Qty: 60 RF: 0 polyethylene glycol 3350 17 gram Powder In Packet 17 gm PO DAILY Qty: 30 RF: 0 docusate sodium [DOK] 100 mg Capsule 100 mg PO BID Qty: 60 RF: 0 Status ED Status: With Doctor
[2018-05-16 17:00] LABS: Hematocrit 36.9 % (35.0-46.0); Hemoglobin 12.1 gm/dL (11.6-15.3); Mean Corpuscular HGB Conc 32.8 % (32.0-36.0); Mean Corpuscular Hemoglobin 30.1 pg (27.0-34.0); Mean Corpuscular Volume 91.8 fL (80.0-100.0); Mean Platelet Volume 9.7 fL (7.0-11.0); Platelet Count 214 th/mm3 (150-450); Red Blood Count 4.02 mil/mm3 (4.00-5.30); Red Cell Distribution Width 15.9 % (11.6-17.2); White Blood Count 25.7 th/mm3 (4.0-11.0)
[2018-05-16 17:13] LABS: Chloride 101 meq/L (98-107); Potassium 3.3 meq/L (3.5-5.1); Sodium 137 meq/L (136-145)
[2018-05-16 17:16] LABS: Calcium 9.3 mg/dL (8.5-10.1)
[2018-05-16 17:17] LABS: Anion Gap 10 meq/L (5-15); Blood Urea Nitrogen 25 mg/dL (7-18); Carbon Dioxide 25.8 meq/L (21.0-32.0); Glucose,Random 142 mg/dL (74-106); Lipase 251 U/L (73-393)
[2018-05-16 17:20] LABS: Alanine Aminotransferase 25 U/L (10-53); Aspartate Aminotransferase 27 U/L (15-37); Glomerular Filtration Rate 72 mL/min (>89)
[2018-05-16] MEDS ORDERED: Potassium Chlor 20 mEq Premix 20 MEQ/100 ML PIGGYBACK IV.SIG ONE (17:20)
[2018-05-16 17:21] LABS: Total Protein 8.4 g/dL (6.4-8.2)
[2018-05-16 17:23] LABS: Alkaline Phosphatase 109 U/L (45-117); Lymphocytes 5 % (9-44); Monocytes 1 % (0-8)
[2018-05-16 17:24] LABS: Platelet Estimate Normal (Normal); Platelet Morphology Normal (Normal); RBC Morphology Normal (Normal)
[2018-05-16] MEDS ORDERED: Vancomycin Inj 1,000 MG in Sodium Chlor 0.9% Inj 250 ML IV.SIG ONE (17:35)
[2018-05-16] MEDS ORDERED: Piperacil/Tazo 3.375 GM Premix 3.375 GM/50 ML PIGGYBACK IV.SIG ONE (17:35)
--- NOTE | 2018-05-16 17:57 | CT ---
EXAM DATE: 05/16/2018 5:48 PM EST AGE/SEX: 68 years / Female INDICATIONS: Abdominal pain with nausea, vomiting and diarrhea. CLINICAL DATA: This is the patient's initial encounter. Patient reports that signs and symptoms have been present for 2 days and indicates a pain score of 10/10. MEDICAL/SURGICAL HISTORY: Carcinoma, cervical. Carcinoma, rectal. Hypertension. Chemotherapy . Cholecystectomy. Colostomy. Hysterectomy. Ureter repair. Lumbar surgery. ORAL CONTRAST: No oral contrast ingested. RADIATION DOSE: 21.21 CTDI (mGy) COMPARISON: [facility], ABDOMEN 1V KUB, 04/08/2018. . TECHNIQUE: Multiple contiguous axial images were obtained through the abdomen and pelvis following b olus infusion of 95 ml Omnipaque 350 (iohexol) nonionic water-soluble contrast as a single exam dos e. No oral contrast ingested. Using automated exposure control and adjustment of the mA and/or kV ac cording to patient size, radiation dose was kept as low as reasonably achievable to obtain optimal di agnostic quality images. DICOM format image data is available electronically for review and comparis on. FINDINGS: LOWER LUNGS: Minimal groundglass opacities at the lung bases. LIVER: Mild diffusely decreased hepatic attenuation without significant volume loss. Gallbladder is surgically absent with mild extra hepatic ductal dilatation likely reflecting reservoir effect. SPLEEN: Homogeneous density without enlargement. PANCREAS: Unremarkable without mass or calcification. KIDNEYS: Kidneys demonstrate symmetrical enhancement without radiopaque renal calculi or hydronephro sis. Multiple bilateral hypodense cystic lesions which are too small to fully characterize. There is a 1.9 cm dominant cyst in the inferior pole of the left kidney. ADRENAL GLANDS: Unremarkable. AORTA: Ermelinda-aneurysmal. BOWEL/MESENTERY: There is a left lower quadrant colostomy in place. Bowel loops are normal in calibe r without evidence for obstruction. There is anterior omental soft tissue thickening measuring 6.1 x 2.9 cm in the left anterior abdomen as well as patchy omental soft tissue thickening in the right lat eral abdomen. No ascites. No focal drainable fluid collections. ABDOMINAL WALL: Left lower quadrant colostomy. RETROPERITONEUM: Several subcentimeter retroperitoneal nodes with a dominant 13 mm node distally. Do minant 15 mm left external iliac node. BLADDER: Decompressed. REPRODUCTIVE: Complex multicystic mass in the central pelvis with the dominant cystic portion measur ing 12.1 x 10.3 cm. BONY STRUCTURES: Postsurgical features of intradiscal and posterior fixation at L4-5. Mild grade 1 r etrolisthesis of L2 on L3. No focal lytic or blastic bony lesions. CONCLUSION: 1. Multilocular cystic mass in the central pelvis with the dominant cystic portion measuring 12.1 x 10.3 cm. Differential considerations include ovarian malignancy or recurrence in this patient with hi story of cervical carcinoma. There is associated omental masses throughout the anterior abdomen consi stent with metastatic disease. 2. Dominant 13 mm left retroperitoneal node and 15 mm left external iliac node also concerning for m etastatic disease. 3. Additional ancillary findings, as above. Electronically signed by: Angel Riojas MD Board Certified Radiologist 05/16/2018 5:56 PM EST
[2018-05-16] MEDS ORDERED: Acetaminophen 325 MG Tablet PO PRN (19:16)
[2018-05-16] MEDS ORDERED: Morphine Inj 4 MG/ML Vial IV.PUSH ONE (19:16)
[2018-05-16] MEDS ORDERED: Bisacodyl 10 MG Supp RECTAL PRN (19:16)
[2018-05-16] MEDS: Sod Chloride 0.9% Inj 1,000 ML IV.CONT SCH (21:30)
[2018-05-16] MEDS: Enoxaparin Inj 40 MG/0.4 ML Syringe SQ SCH (21:32)
[2018-05-16 21:48] LABS: Bilirubin,Urine Negative (Negative); Clarity,Urine Clear (Clear); Color,Urine Yellow (Yellw/Straw); Glucose,Urine (UA) Negative (Negative); Leukocyte Esterase,Urine Negative (Negative); Nitrite,Urine Negative (Negative); Urobilinogen,Urine 0.2 mg/dL (Less than 2)
[2018-05-16 21:53] LABS: RBC,Urine 0-3 /hpf (0-3); Squamous Epithelial Cell,Urine 0-5 /hpf (0-5); WBC,Urine 0-5 /hpf (0-5)
[2018-05-16] MEDS: Piperacil/Tazo 4.5 GM Premix 4.5 GM/100 ML BAG IV.SIG SCH (22:25)
[2018-05-16] MEDS ORDERED: Zolpidem Tartrate 5 MG Tablet PO ONE (22:26)
[2018-05-16] MEDS: Morphine Inj 4 MG/ML Vial IV.PUSH PRN (23:02)
[2018-05-17] MEDS: Morphine Inj 4 MG/ML Vial IV.PUSH PRN ×4 (04:58→22:13)
[2018-05-17] MEDS: Piperacil/Tazo 4.5 GM Premix 4.5 GM/100 ML BAG IV.SIG SCH ×3 (04:59→20:08)
[2018-05-17 06:14] LABS: Hematocrit 32.7 % (35.0-46.0); Hemoglobin 10.9 gm/dL (11.6-15.3); Mean Corpuscular HGB Conc 33.2 % (32.0-36.0); Mean Corpuscular Volume 90.5 fL (80.0-100.0); Platelet Count 186 th/mm3 (150-450); Red Blood Count 3.62 mil/mm3 (4.00-5.30); Red Cell Distribution Width 15.5 % (11.6-17.2)
[2018-05-17 06:29] LABS: Lymphocytes 5 % (9-44); Metamyelocytes 1 % (0-1); Monocytes 1 % (0-8)
[2018-05-17 06:30] LABS: Platelet Estimate Normal (Normal); Platelet Morphology Normal (Normal)
[2018-05-17 06:34] LABS: Chloride 104 meq/L (98-107); Potassium 3.3 meq/L (3.5-5.1); Sodium 139 meq/L (136-145)
[2018-05-17] MEDS: Sod Chloride 0.9% Inj 1,000 ML IV.CONT SCH ×2 (06:35→15:49)
[2018-05-17 07:00] LABS: Alanine Aminotransferase 20 U/L (10-53); Albumin 3.6 g/dL (3.4-5.0); Alkaline Phosphatase 102 U/L (45-117); Anion Gap 9 meq/L (5-15); Aspartate Aminotransferase 25 U/L (15-37); Blood Urea Nitrogen 19 mg/dL (7-18); Calcium 8.5 mg/dL (8.5-10.1); Carbon Dioxide 25.7 meq/L (21.0-32.0); Glomerular Filtration Rate 79 mL/min (>89); Glucose,Random 114 mg/dL (74-106); Total Protein 7.2 g/dL (6.4-8.2)
[2018-05-17] MEDS ORDERED: Morphine Inj 4 MG/ML Vial IV.PUSH PRN (08:00)
--- NOTE | 2018-05-17 08:18 | P.HPIM ---
History of Present Illness Primary Care Physician: Maicol Valiente MD Chief Complaint: Abdominal pain, nausea and vomiting History of Present Illness: Patient is a 68-year-old female with history of ovarian cancer with metastatic disease, currently being followed by Dr. Allen her oncologist as well as Dr. Savage her primary care doctor, presents the emergency room after she received her second round of chemotherapy on with intractable nausea and vomiting abdominal pain. Patient reports that she has not been able to keep anything down since , reports that he is abdominal pain, pain is worse to her right lower abdomen. Patient's blood work is significant for a white blood cell count of 25,700 with 14% bandemia. Patient was pancultured and was given a dose of vancomycin as well as Zosyn. At the time of assessment, patient's abdominal pain has improved. She is still nauseous with active vomiting. Awaiting PHOTO EDITOR consult. Supportive care. Awaiting blood cultures. Inpatient Certification Inpatient Certification: I certify that the inpatient services were ordered in accordance with Medicare regulations governing the order. This includes certification that hospital inpatient services are reasonable and necessary and in the case of services not specified as inpatient-only under 42 CFR 419.22(n), that they are appropriately provided as inpatient services in accordance to with the 2-midnight benchmark under 43 CFR 412.3(e) Estimated Total Length of Stay (Days): 3 Plans for Post Hospital Care: Home Review of Systems Review of Systems: all other systems reviewed are negative [facility] Medical History Medical History Cervical cancer (Acute) History of anal cancer (Acute) History of hypertension (Acute) History of hypothyroidism (Acute) History of rheumatoid arthritis (Acute) History of sleep disturbance (Acute) Surgical History Surgical History History of cholecystectomy (Acute) History of colostomy (Acute) History of hysterectomy (Acute) History of removal of Port-a-Cath (Acute) History of ureter repair (Acute) Family History Family History Father Cirrhosis of liver Mother Congestive heart failure (CHF) Mother Diabetes Social History Social History Substance History: No History of Abuse Second Hand Smoke Exposure: No Smoking Status: Former smoker Tobacco Type: Cigarettes How Often Do You Have a Drink Containing Alcohol: Monthly or less Recent Travel in [place] within the Last 8 Weeks: No Recent Out of Country Travel within the Last 8 Weeks: No Immunization History Tetanus Immunization: Unsure Medications and Allergies Allergies Allergy/AdvReac Type Severity Reaction Status Date / Time *MDRO Multi-Drug Resistant Allergy Unknown NA Uncoded 04/02/18 09:32 Organism Home Medications Medication Instructions Recorded Confirmed Type adalimumab [Humira Pen] 10 mg SUBCUT Q2W 04/02/18 05/16/18 History folic acid 1 mg PO DAILY 04/02/18 05/16/18 History gabapentin 600 mg PO HS 04/02/18 05/16/18 History levothyroxine 100 mcg PO DAILY 04/02/18 05/16/18 History methotrexate sodium 1 ml IM QWEEK 04/02/18 05/16/18 History mirtazapine 15 mg PO HS 04/02/18 05/16/18 History Active Medications: Active Medications Acetaminophen (Tylenol) 650 mg PO Q4H PRN PRN Reason: Temp > 100.4 Al Hydroxide/Mg Hydroxide (Milk Of Magnesia Liq) 30 ml PO Q12H PRN PRN Reason: Mild Constipation Bisacodyl (Dulcolax Supp) 10 mg RECTAL DAILY PRN PRN Reason: SEVERE CONSITIPATION Enoxaparin Sodium (Lovenox Inj) 40 mg SQ Q24H [facility] Last Admin: 05/16/18 21:32 Dose: 40 mg Sodium Chloride (Ns Inj) 1,000 mls @ 100 mls/hr IV.CONT .Q10H [facility] Last Admin: 05/17/18 06:35 Dose: 100 mls/hr Piperacillin/Tazobactam/Dextrose (Zosyn 4.5 Gm Premix) 4.5 gm in 100 mls @ 12.5 mls/hr IV.SIG Q8H [facility] Last Admin: 05/17/18 04:59 Dose: 12.5 mls/hr Lactulose (Lactulose Liq) 30 ml PO DAILY PRN PRN Reason: SEVERE CONSITIPATION Morphine Sulfate (Morphine Inj) 4 mg IV.PUSH Q4H PRN PRN Reason: pain > 4 Last Admin: 05/17/18 04:58 Dose: 4 mg Ondansetron HCl (Zofran Inj) 4 mg IV.PUSH Q6H PRN PRN Reason: NAUSEA OR VOMITING Last Admin: 05/16/18 21:11 Dose: 4 mg Sennosides (Senokot) 17.2 mg PO Q12H PRN PRN Reason: Moderate Constipation Sodium Chloride (Ns Flush) 2 ml IV.FLUSH PRN PRN PRN Reason: FLUSH AFTER USING IV ACCESS Sodium Chloride (Ns Flush) 2 ml IV.FLUSH BID [facility] Last Admin: 05/16/18 21:34 Dose: 2 ml Sodium Chloride (Ns Flush) 2 ml IV.FLUSH PRN PRN PRN Reason: FLUSH AFTER USING IV ACCESS Physical Exam Vital signs: Vital Signs 05/16/18 16:05 05/16/18 16:15 05/16/18 16:22 Temperature 98.4 F 98.4 F 98.4 F Pulse Rate 101 H 98 H 85 Respiratory Rate 18 20 18 Blood Pressure 218/109 H 178/100 H 140/74 Pulse Oximetry 96 96 93 L 05/16/18 20:14 05/17/18 00:00 05/17/18 03:22 Temperature 98.7 F 98.5 F Pulse Rate 88 85 90 Respiratory Rate 20 18 18 Blood Pressure 181/80 H 161/74 H 157/64 H Pulse Oximetry 99 90 L 94 L Intake & Output 05/16/18 05/17/18 05/17/18 18:59 06:59 18:59 Intake Total 2500 / 2500 Output Total 650 / 650 Balance 1850 / 1850 Weight 85.2 kg 87.2 kg Intake: IV 2500 / 2500 NS Inj 1,000 ML @ 100 mls/hr IV 1000 / 1000 .CONT .Q10H [facility] Rx#:[id number] Zosyn 3.375 GM Premix 3.375 gm 50 / 50 In 50 ml @ 100 mls/hr IV.SIG ONCE ONE Rx#:[id number] Zosyn 4.5 GM Premix 4.5 gm In 100 / 100 100 ml @ 12.5 mls/hr IV.SIG Q8H [facility] Rx#:[id number] KCl 20 mEq Premix Inj 20 meq In 100 / 100 100 ml @ 50 mls/hr IV.SIG ONCE ONE Rx#:[id number] NS Inj 1,000 ML @ Wide Open IV. 1000 / 1000 SIG BOLUS ONE Rx#:[id number] Vancomycin Inj 1,000 MG In NS 250 / 250 Inj 250 ML @ 250 mls/hr IV.SIG ONCE ONE Rx#:[id number] Output: Urine 650 / 650 Other: Weight On Admission 87.9 kg Narrative: GENERAL: Well-developed, well-nourished patient with nausea and vomiting SKIN: Warm and dry. No rash. HEAD: Normocephalic. Atraumatic. EYES: Pupils equal and round. No scleral icterus. No injection or drainage. ENT: No nasal bleeding or discharge. Mucous membranes pink and moist. NECK: Supple. Trachea midline. CARDIOVASCULAR: Regular rate and rhythm. S1, S2 noted. RESPIRATORY: No accessory muscle use. Clear to auscultation. Breath sounds equal bilaterally. GASTROINTESTINAL: Abdomen soft, nondistended. Normoactive bowel sounds x4. Abdominal pain in the right lower quadrant to palpation. MUSCULOSKELETAL: No obvious deformities. Extremities without clubbing, cyanosis , or edema. NEUROLOGICAL: Awake and alert. No obvious cranial nerve deficits. Motor grossly within normal limits. 5/5 muscle strength in bilateral upper and lower extremities. Normal speech. PSYCHIATRIC: Appropriate mood and affect; insight and judgment normal. Results Labs CBC & Chem 7: 05/17/18 04:44 05/17/18 04:44 Imaging Impressions Abdomen/Pelvis CT 05/16/18 16:22 CONCLUSION: 1. Multilocular cystic mass in the central pelvis with the dominant cystic portion measuring 12.1 x 10.3 cm. Differential considerations include ovarian malignancy or recurrence in this patient with history of cervical carcinoma. There is associated omental masses throughout the anterior abdomen consistent with metastatic disease. 2. Dominant 13 mm left retroperitoneal node and 15 mm left external iliac node also concerning for metastatic disease. 3. Additional ancillary findings, as above. Caprini VTE Risk Assessment Caprini VTE Risk Assessment: Moderate/High Risk (score >= 2) Caprini Risk Assessment Model: Point Value = 1 Point Value = 2 Point Value = 3 Point Value = 5 Age 41-60 Minor surgery BMI > 25 kg/m2 Swollen legs Varicose veins or History of unexplained or recurrent spontaneous Oral contraceptives or hormone replacement Sepsis (< 1 month) Serious lung disease, including pneumonia (< 1 month) Abnormal pulmonary function Acute myocardial infarction Congestive heart failure (< 1 month) History of inflammatory bowel disease Medical patient at bed rest Age 61-74 Arthroscopic surgery Major open surgery (> 45 min) Laparoscopic surgery (> 45 min) Malignancy Confined to bed (> 72 hours) Immobilizing plaster cast Central venous access Age >= 75 History of VTE Family history of VTE Factor V Leiden Prothrombin [id number] Lupus anticoagulant Anticardiolipin antibodies Elevated serum homocysteine Heparin-induced thrombocytopenia Other congenital or acquired thrombophilia Stroke (< 1 month) Elective arthroplasty Hip, pelvis, or leg fracture Acute spinal cord injury (< 1 month) Prophylaxis Regimen: Total Risk Factor Score Risk Level Prophylaxis Regimen 0-1 Low Early ambulation 2 Moderate Order ONE of the following: *Sequential Compression Device (SCD) *Heparin 5000 units SQ BID 3-4 Higher Order ONE of the following medications: *Heparin 5000 units SQ TID *Enoxaparin/Lovenox 40 mg SQ daily (WT < 150 kg, CrCl > 30 mL/min) *Enoxaparin/Lovenox 30 mg SQ daily (WT < 150 kg, CrCl > 10-29 mL/min) *Enoxaparin/Lovenox 30 mg SQ BID (WT < 150 kg, CrCl > 30 mL/min) AND/OR *Sequential Compression Device (SCD) 5 or more Highest Order ONE of the following medications: *Heparin 5000 units SQ TID (Preferred with Epidurals) *Enoxaparin/Lovenox 40 mg SQ daily (WT < 150 kg, CrCl > 30 mL/min) *Enoxaparin/Lovenox 30 mg SQ daily (WT < 150 kg, CrCl > 10-29 mL/min) *Enoxaparin/Lovenox 30 mg SQ BID (WT < 150 kg, CrCl > 30 mL/min) AND *Sequential Compression Device (SCD) Assessment and Plan Plan Patient is a 68-year-old female with history of ovarian cancer with metastatic disease, currently being followed by Dr. Allen her oncologist as well as Dr. Savage her primary care doctor, presents the emergency room after she received her second round of chemotherapy on with intractable nausea and vomiting abdominal pain. Patient reports that she has not been able to keep anything down since , reports that he is abdominal pain, pain is worse to her right lower abdomen. Patient's blood work is significant for a white blood cell count of 25,700 with 14% bandemia. Patient was pancultured and was given a dose of vancomycin as well as Zosyn. SIRS -Leukocytosis with 25,000 on presentation. Tachycardia. UA negative. -Unknown source at this time. Blood cultures are pending, follow. Lactic acid normal. -Started on IV Zosyn, continue. Add Vancomycin IV. -Continue to monitor BMP. Abdominal pain, nausea and vomiting -Abdominal/pelvis CT shows that there is anterior omental soft tissue thickening measuring 6.1 x 2.9 cm in the left anterior abdomen as well as patchy omental soft tissue thickening in the right lateral abdomen. There is no ascites, there is no drainable fluid. There is also multiloculated cystic mass in the central pelvis, differential includes ovarian malignancy or recurrence. There is also associated omental masses throughout the anterior abdomen consistent with metastatic disease which patient knows about already. -Could be secondary to chemotherapy, last chemotherapy was . Consult placed to patient's PHOTO EDITOR, input and recommendations pending. -Lipase normal. -Antiemetics as needed. -Control with IV morphine as needed. Hypokalemia -Likely secondary to vomiting and poor PO intake. -K3.3. Replete as needed. -Continue IVF. -Monitor BMP. Hypothyroidism -Continue Home levothyroxine. DVT Prophylaxis: SCDs. Lovenox. Discussed with patient, bedside RN and Dr. tesfaye. H&P: Quality VTE Deep Vein Thrombosis/Pulmonary Embolism Present on Admission: No
[2018-05-17] MEDS ORDERED: Promethazine 12.5 MG Supp RECTAL PRN (08:38)
[2018-05-17] MEDS ORDERED: Vancomycin Consult Pharmacy OTHER PRN (08:55)
[2018-05-17] MEDS ORDERED: Vancomycin Inj 1,000 MG in Sodium Chlor 0.9% Inj 250 ML IV.SIG ONE (08:55)
[2018-05-17] MEDS: Potassium Chlor 20 mEq Premix 20 MEQ/100 ML PIGGYBACK IV.SIG SCH ×2 (09:48→14:20)
--- NOTE | 2018-05-17 12:15 | ECG ---
Date Performed: 05/16/2018 Time Performed: 16:39:15 PTAGE: 68 years EKG: Sinus rhythm POSSIBLE LEFT ATRIAL ENLARGEMENT MARKED LEFT AXIS DEVIATION POSSIBLE LEFT VENTRICULAR HYPERTROPHY ND NIMAL ST DEPRESSION ABNORMAL ECG Since the PREVIOUS TRACING , no significant change noted PREVIOUS TRACIN08/18/2016 11.45 DOCTOR: Colby Cleaning Interpretating Date/Time 05/17/2018 12:11:00
[2018-05-17] MEDS: Lisinopril 10 MG Tablet PO SCH ×2 (14:21→20:19)
[2018-05-17] MEDS: Levothyroxine 100 MCG Tablet PO SCH (14:21)
--- NOTE | 2018-05-17 15:36 | MB ---
cc: Sanjuana Allen MD, Souheil MD Pontey,Macario Artis,Dolores UMANZOR DATE: 05/17/2018 PHYSICIAN REQUESTING CONSULT: Dr. Macario Song, as well as Dr. Maicol Valiente, ERNA Joseph. REASON FOR CONSULTATION: The patient known to us, probable ovarian cancer, with ongoing treatment. REASON FOR ADMISSION: Nausea, vomiting, decreased oral intake, failure to thrive. HISTORY OF PRESENT ILLNESS: A 68-year-old female who recently came under our care as we met her as an inpatient consult where she had a large pelvic mass, carcinomatous changes, ascites, omental thickening, adenopathy in the groin. Biopsy showed papillary serous carcinoma. CA-125 was elevated at greater than 2200. Her past medical history is notable for an anal cancer treated with a combined abdominoperineal resection and I believe she had radiation as part of the treatment. She also reports a hysterectomy and, per her best recollection, both of her tubes and ovaries were removed many years ago for what she describes as a cervical cancer, but she did not require radical resection nor did she require any additional treatment after that. These records are not available. Nevertheless, with a markedly-elevated CA-125, the aforementioned findings, and biopsy showing adenocarcinoma suggestive of SENIOR CUSTOMER SERVICE REPRESENTATIVE malignancy, she was seen and recommended for neoadjuvant Taxol and carboplatin chemotherapy. She is now posttreatment day #4, status post first-line, second cycle Taxol and carboplatin chemotherapy with Neulasta stem cell support. She reports significant nausea with emesis that followed her first cycle, although she did not require hospitalization after the first treatment. Steps were taken, to try to minimize that as she was given pretreatment Decadron and also placed on Sancuso patch, as well as IV premedication prior to chemotherapy and oral antiemetics that she states she took after chemotherapy. Nevertheless, despite these efforts, she has had progressive nausea and vomiting with decreased oral intake with limited solid and fluid intake , minimal output per her colostomy, and she is admitted now to the hospital where she presented last night. IV fluids were started. She reports that so far she has not noticed any obvious improvement in her symptomatology since admission. She is seen now in consultation for further evaluation and recommendations regarding these findings. PAST MEDICAL HISTORY: Anal cancer, as noted above. Possible early cervical cancer, rheumatoid arthritis, type 2 diabetes, gout, hypertension, thyroid disease, and recent diagnosis of adenocarcinoma of probable ovarian origin. PAST SURGICAL HISTORY: Combined abdominoperineal resection with anorectal resection with permanent colostomy. She has had a hysterectomy and quite possibly bilateral salpingo-oophorectomy by history, unconfirmed. She has had left knee surgery, cholecystectomy, breast biopsy, and she has had an inguinal lymph node biopsy. SENIOR CUSTOMER SERVICE REPRESENTATIVE HISTORY: Four pregnancies, 4 births. ALLERGIES: NO KNOWN ALLERGIES. MEDICATIONS: 1. Lisinopril. 2. Humira injections. 3. Folic acid. 4. Methotrexate. 5. Synthroid. 6. She also takes the Zofran and Ativan as needed. 7. She has Percocet available for pain as needed. FAMILY HISTORY: Unremarkable. SOCIAL HISTORY: She is , has a supportive family, and is not a tobacco user. REVIEW OF SYSTEMS: As per history of present illness. She does not believe she has had any fevers. No one else in the family has been ill. She has some generalized fatigue, aches and pains, and she has some intermittent pain in her lower abdomen. OBJECTIVE DATA: White count 23,000 with 81% neutrophils. H and H 10.9 and 32.7. Electrolytes show a potassium of 3.3. Renal function preserved with a BUN and creatinine of 19 and 0.73. Total bilirubin is elevated at 1.2. Transaminases normal. PHYSICAL EXAMINATION: VITAL SIGNS: She is afebrile. Pulse 73 to 90, respirations 18 to 20, blood pressure 157-192/64-98. O2 saturations are currently 93%. GENERAL: She is uncomfortable, in mild distress due to nausea. She is actually having some active emesis during our encounter, after which she does get some relief. She does not have any cardiac or pulmonary compromise. Alopecia consistent with chemotherapy. HEENT: Pupils equal, round, reactive to light. Her mucous membranes are slightly pale and dry. LUNGS: Clear bilaterally. CARDIOVASCULAR: Regular rate and rhythm. ABDOMEN: Colostomy intact. There is some output from the colostomy. She does not have any rebound or guarding. There is some discomfort in the right and left lower quadrant on deep palpation, but nonacute. Bowel sounds are hypoactive. BACK: No CVA tenderness or spinal point tenderness. EXTREMITIES: 1+ edema bilaterally, symmetrical. Neurovascularly intact. Time spent in discussion with her reviewing the findings in her case today and I am sorry that she is feeling poorly. I am encouraged and looked for some optimism to let her know that her CA-125 went from 2200 down to 1500 after the first treatment (specifically 2267 down to 1548). It is almost certain that the chemotherapy is contributing to her feeling poorly and we may need to reevaluate the regimen. We discussed possibly lowering the dose or possibly changing to single agent medication such as single agent carboplatin. There are other active agents that are less than emetogenic but they are less well studied as first-line treatment. Nevertheless, we want to be aggressive after the underlying cancer, but we do not want her feeling so poorly that she requires hospitalization after treatment. We will expand her antiemetics and add Reglan now, possibly a short course of Decadron would help, and we will reevaluate and adjust subsequent regimen to try to minimize side effects. She still remains philosophically in favor of treatment and I hope that she is able to get some rest and feel better soon. ASSESSMENT: 1. Hospital day #2. 2. Post-chemotherapy day #4 with nausea, vomiting, decreased oral intake, failure to thrive. 3. Status post her first line, cycle 2 of Taxol and carboplatin plus Neulasta stem cell support. 4. Markedly elevated white count with left shift. May not be infection related. May be related to the Neulasta stem cell support injection. 5. Discussion, counseling. PLAN: 1. Appreciate the excellent medical care. 2. Add Reglan and short course of Decadron. 3. We will reevaluate prior to her next treatment and consider changing to single agent carboplatin and/or dose reduce further the dual regimen. 4. Also, consider maybe a short course, perhaps of 5-7 days, tapered Decadron dose add Reglan to her antiemetics. Thank you for the consultation. MD REGINALD Rosales/jadyn , 02:31 PM , 02:49 PM
[2018-05-17] MEDS: Vancomycin Inj 1,000 MG in Sodium Chlor 0.9% Inj 250 ML IV.SIG SCH (20:16)
[2018-05-17] MEDS: Enoxaparin Inj 40 MG/0.4 ML Syringe SQ SCH (20:17)
[2018-05-17] MEDS: Mirtazapine 15 MG Tablet PO SCH (20:19)
[2018-05-17] MEDS ORDERED: Gabapentin 300 MG Capsule PO SCH (21:00)
[2018-05-17] MEDS: Zolpidem Tartrate 5 MG Tablet PO PRN (23:06)
[2018-05-18] MEDS: Sod Chloride 0.9% Inj 1,000 ML IV.CONT SCH ×4 (01:08→21:36)
[2018-05-18] MEDS: Piperacil/Tazo 4.5 GM Premix 4.5 GM/100 ML BAG IV.SIG SCH ×3 (03:12→19:25)
[2018-05-18] MEDS: Levothyroxine 100 MCG Tablet PO SCH (05:57)
[2018-05-18] MEDS: Morphine Inj 4 MG/ML Vial IV.PUSH PRN ×3 (05:58→19:26)
[2018-05-18 06:22] LABS: Hematocrit 29.5 % (35.0-46.0); Hemoglobin 9.6 gm/dL (11.6-15.3); Mean Corpuscular HGB Conc 32.7 % (32.0-36.0); Mean Corpuscular Hemoglobin 29.8 pg (27.0-34.0); Mean Corpuscular Volume 91.1 fL (80.0-100.0); Mean Platelet Volume 9.1 fL (7.0-11.0); Platelet Count 158 th/mm3 (150-450); Red Blood Count 3.24 mil/mm3 (4.00-5.30); Red Cell Distribution Width 15.7 % (11.6-17.2); White Blood Count 13.4 th/mm3 (4.0-11.0)
[2018-05-18 06:49] LABS: Chloride 105 meq/L (98-107); Potassium 3.9 meq/L (3.5-5.1); Sodium 137 meq/L (136-145)
[2018-05-18 06:53] LABS: Albumin 3.3 g/dL (3.4-5.0); Anion Gap 6 meq/L (5-15); Blood Urea Nitrogen 18 mg/dL (7-18); Calcium 8.4 mg/dL (8.5-10.1); Carbon Dioxide 25.7 meq/L (21.0-32.0); Glucose,Random 115 mg/dL (74-106)
[2018-05-18 06:56] LABS: Alanine Aminotransferase 21 U/L (10-53); Aspartate Aminotransferase 24 U/L (15-37); Glomerular Filtration Rate Greater Than 89 mL/min (>89)
[2018-05-18 06:58] LABS: Total Protein 6.9 g/dL (6.4-8.2)
[2018-05-18 06:59] LABS: Alkaline Phosphatase 99 U/L (45-117)
[2018-05-18 07:26] LABS: Lymphocytes 6 % (9-44); Platelet Estimate Normal (Normal); Platelet Morphology Normal (Normal)
[2018-05-18] MEDS: Vancomycin Inj 1,000 MG in Sodium Chlor 0.9% Inj 250 ML IV.SIG SCH (08:27)
[2018-05-18] MEDS: Lisinopril 10 MG Tablet PO SCH ×2 (08:28→20:15)
--- NOTE | 2018-05-18 12:27 | P.PNIM ---
Subjective Interval history: 68-year-old female was seen and examined today for follow-up on intractable nausea, vomiting secondary to chemotherapy. Patient states that she may feel little bit better today. However she still cannot tolerate anything by mouth. She indicates that whenever she is tries to drink anything it actually taste like poop, and that it automatically comes right back up. Patient still with labile blood pressure. She remains afebrile. Physical Exam Vital signs: Vital Signs 05/17/18 16:00 05/17/18 17:10 05/18/18 00:00 Temperature 98.7 F 98.4 F Pulse Rate 77 77 Respiratory Rate 20 18 Blood Pressure 188/86 H 188/86 H 167/76 H Pulse Oximetry 93 L 91 L 05/18/18 03:26 05/18/18 08:00 05/18/18 11:05 Temperature 96.7 F L 97.2 F L Pulse Rate 71 63 Respiratory Rate 18 20 Blood Pressure 128/63 176/79 H 186/84 H Pulse Oximetry 93 L 97 05/18/18 11:31 Temperature 98.9 F Pulse Rate 77 Respiratory Rate 16 Blood Pressure 191/95 H Pulse Oximetry 94 L Intake & Output 05/17/18 05/18/18 05/18/18 18:59 06:59 18:59 Intake Total 1550 / 1550 1993 / 1993 806 / 806 Output Total 450 / 450 Balance 1550 / 1550 1544 / 1544 806 / 806 Weight 88.7 kg Intake: IV 1550 / 1550 1993 / 1993 806 / 806 NS Inj 1,000 ML @ 100 mls/hr IV 1000 / 1000 1508 / 1508 492 / 492 .CONT .Q10H [facility] Rx#:[id number] Zosyn 4.5 GM Premix 4.5 gm In 100 / 100 236 / 236 64 / 64 100 ml @ 12.5 mls/hr IV.SIG Q8H [facility] Rx#:[id number] KCl 20 mEq Premix Inj 20 meq In 200 / 200 100 ml @ 50 mls/hr IV.SIG Q2H [facility] Rx#:[id number] Vancomycin Inj 1,000 MG In NS 250 / 250 250 / 250 250 / 250 Inj 250 ML @ 250 mls/hr IV.SIG Q12H [facility] Rx#:[id number] Oral 0 / 0 Output: Urine 350 / 350 Emesis 100 / 100 Other: # Voids 2 # Bowel Movements 0 # Emeses 1 Narrative: GENERAL: Well-developed, well-nourished, in no acute distress. alert and orientated HEENT: Head is normocephalic without any lesions or masses noted. Facial features are symmetric. Eyes: Extraocular muscles are intact. Conjunctivae were clear. NECK: Trachea midline no deviation. CARDIAC: Regular rhythm, regular rate. S1/S2 are heard. 2/6 blowing systolic murmur noted in the aortic region. No gallops or rubs. LUNGS: Clear to auscultation bilaterally. No wheeze, rhonchi or rales. No use of accessory muscles on inspiration or expiration. ABDOMEN: Soft, nontender. Nondistended. Bowel sounds heard in all 4 quadrants. No organomegaly or masses. Negative rebound, negative guarding EXTREMITIES: No edema, pulses are equal bilaterally. No cyanosis or clubbing NEUROLOGY: Mood and affect appear appropriate. Cranial nerves II through XII grossly intact. Moving all extremities, speech is clear Results Labs CBC & Chem 7: 05/19/18 05:50 05/18/18 06:00 Labs: Microbiology 05/16/18 18:30 Blood - Peripheral Aerobic Blood Culture - Preliminary No growth in 2 days 05/16/18 18:30 Blood - Peripheral Anaerobic Blood Culture - Preliminary No growth in 2 days 05/16/18 18:25 Blood - Peripheral Aerobic Blood Culture - Preliminary No growth in 2 days 05/16/18 18:25 Blood - Peripheral Anaerobic Blood Culture - Preliminary No growth in 2 days Assessment and Plan Plan Intractable nausea, vomiting secondary to chemotherapy Patient is on Zofran and Reglan. We will add Phenergan Discussed with patient nutrition needs with possible TPN versus PEG tube feeding Advance diet as tolerated Systemic inflammatory response syndrome, resolved Patient did present with leukocytosis, tachycardia, No infection source was identified Patient was on Zosyn and vancomycin, will discontinue antibiotics at this time since no infection source has been identified Leukocytosis Likely secondary to Neulasta No source of infection has been identified Blood cultures negative for 2 days Hypokalemia Continue monitor replete as needed Hypothyroidism Resume replacement therapy DVT prevention Subcutaneous Lovenox Discussed Condition With: Patient, nursing staff, Discharge Planning: Discharge planning. Anticipate discharge once patient tolerating p.o. Progress Note: Quality VTE Deep Vein Thrombosis/Pulmonary Embolism Present on Admission: No
[2018-05-18] MEDS ORDERED: Pharmacy Ordered Lab Info OTHER ONE (19:45)
[2018-05-18] MEDS: Mirtazapine 15 MG Tablet PO SCH (20:14)
[2018-05-18] MEDS: Enoxaparin Inj 40 MG/0.4 ML Syringe SQ SCH (20:15)
[2018-05-18] MEDS: Zolpidem Tartrate 5 MG Tablet PO PRN (21:36)
[2018-05-19] MEDS: Piperacil/Tazo 4.5 GM Premix 4.5 GM/100 ML BAG IV.SIG SCH (03:30)
[2018-05-19] MEDS: Levothyroxine 100 MCG Tablet PO SCH (05:45)
[2018-05-19] MEDS: Sod Chloride 0.9% Inj 1,000 ML IV.CONT SCH ×3 (05:45→18:22)
[2018-05-19] MEDS: Morphine Inj 4 MG/ML Vial IV.PUSH PRN ×2 (05:45→11:50)
[2018-05-19 08:25] LABS: Baso # (Auto) 0.1 th/mm3 (0.0-0.2); Baso % (Auto) 1.8 % (0.0-2.0); Eos % (Auto) 0.2 % (0.0-4.0); Hematocrit 26.8 % (35.0-46.0); Hemoglobin 8.7 gm/dL (11.6-15.3); Lymph # (Auto) 0.9 th/mm3 (1.0-4.8); Lymph % (Auto) 15.3 % (9.0-44.0); Mean Corpuscular HGB Conc 32.5 % (32.0-36.0); Mean Corpuscular Hemoglobin 29.7 pg (27.0-34.0); Mean Corpuscular Volume 91.4 fL (80.0-100.0); Mean Platelet Volume 10.2 fL (7.0-11.0); Mono # (Auto) 0.1 th/mm3 (0.0-0.9); Mono % (Auto) 2.4 % (0.0-8.0); Neut # (Auto) 4.8 th/mm3 (1.8-7.7); Neut % (Auto) 80.3 % (16.0-70.0); Platelet Count 120 th/mm3 (150-450); Red Blood Count 2.93 mil/mm3 (4.00-5.30); Red Cell Distribution Width 16.1 % (11.6-17.2); White Blood Count 5.9 th/mm3 (4.0-11.0)
[2018-05-19] MEDS: Lisinopril 10 MG Tablet PO SCH ×2 (09:26→20:55)
--- NOTE | 2018-05-19 10:26 | P.PNIM ---
Subjective Interval history: Pt is a 68 y/o female seen and examined for follow up of intractable vomiting secondary to chemotherapy. Pt states her nausea has improved. She started to tolerate a liquid diet last night and progressed to eating jell-o. She is experiencing some regurgitation. Pt is afebrile and vital signs are stable, except for her blood pressure which is still elevated. Physical Exam Vital signs: Vital Signs 05/18/18 11:05 05/18/18 11:31 05/18/18 16:00 Temperature 98.9 F 97.0 F L Pulse Rate 77 79 Respiratory Rate 16 20 Blood Pressure 186/84 H 191/95 H 193/96 H Pulse Oximetry 94 L 97 05/18/18 20:00 05/19/18 00:00 05/19/18 08:00 Temperature 99.2 F 97.8 F 97.6 F Pulse Rate 64 74 70 Respiratory Rate 18 18 20 Blood Pressure 168/76 H 154/66 H 178/81 H Pulse Oximetry 94 L 96 95 Intake & Output 05/18/18 05/19/18 05/19/18 18:59 06:59 18:59 Intake Total 1126 / 1126 2400 / 2400 Output Total 250 / 250 Balance 1126 / 1126 2150 / 2150 Weight 89.8 kg Intake: IV 806 / 806 2200 / 2200 NS Inj 1,000 ML @ 100 mls/hr IV 492 / 492 1999 / 1999 .CONT .Q10H WILLIAM Rx#:[id number] Zosyn 4.5 GM Premix 4.5 gm In 64 / 64 200 / 200 100 ml @ 12.5 mls/hr IV.SIG Q8H WILLIAM Rx#:[id number] Vancomycin Inj 1,000 MG In NS 250 / 250 Inj 250 ML @ 250 mls/hr IV.SIG Q12H WILLIAM Rx#:[id number] Oral 320 / 320 200 / 200 Output: Urine 250 / 250 Other: # Voids 3 # Bowel Movements 0 Narrative: GENERAL: Well-developed, well-nourished, in no acute distress. alert and orientated HEENT: Head is normocephalic without any lesions or masses noted. Facial features are symmetric. Eyes: Extraocular muscles are intact. Conjunctivae were clear. NECK: Trachea midline no deviation. CARDIAC: Regular rhythm, regular rate. S1/S2 are heard. 2/6 blowing systolic murmur noted in the aortic region. No gallops or rubs. LUNGS: Clear to auscultation bilaterally. No wheeze, rhonchi or rales. No use of accessory muscles on inspiration or expiration. ABDOMEN: Soft, nontender. Nondistended. Right-sided abdominal tenderness upon palpation. EXTREMITIES: No edema, pulses are equal bilaterally. No cyanosis or clubbing NEUROLOGY: Mood and affect appear appropriate. Moving all extremities, speech is clear Results - Labs CBC & Chem 7: 05/19/18 05:50 05/18/18 06:00 Laboratory Results - last 24 hr 05/19/18 05:50 CBC w Diff Auto diff final WBC 5.9 D RBC 2.93 L Hgb 8.7 L Hct 26.8 L MCV 91.4 MCH 29.7 MCHC 32.5 RDW 16.1 Plt Count 120 L MPV 10.2 Neut % (Auto) 80.3 H Lymph % (Auto) 15.3 [place] % (Auto) 2.4 Eos % (Auto) 0.2 Baso % (Auto) 1.8 Neut # (Auto) 4.8 Lymph # (Auto) 0.9 L [place] # (Auto) 0.1 Eos # (Auto) 0.0 Baso # (Auto) 0.1 WBC Differential . Differential Comment . Microbiology 05/16/18 18:30 Blood - Peripheral Aerobic Blood Culture - Preliminary No growth in 2 days 05/16/18 18:30 Blood - Peripheral Anaerobic Blood Culture - Preliminary No growth in 2 days 05/16/18 18:25 Blood - Peripheral Aerobic Blood Culture - Preliminary No growth in 2 days 05/16/18 18:25 Blood - Peripheral Anaerobic Blood Culture - Preliminary No growth in 2 days Assessment and Plan - Plan Intractable nausea, vomiting secondary to chemotherapy Patient is on Zofran, Reglan and Phenergan Advance diet as tolerated Systemic inflammatory response syndrome, resolved Patient did present with leukocytosis, tachycardia No infection source was identified Patient was on Zosyn and vancomycin, antibiotics were discontinued yesterday since no infection source has been identified Leukocytosis, resolved Likely secondary to Neulasta No source of infection has been identified Blood cultures negative for 2 days Hypokalemia, resolved -Continue to monitor and replete as needed Hypothyroidism Resume replacement therapy DVT prevention Subcutaneous Lovenox Discussed Condition With: Patient, nursing staff, Discharge Planning: Discharge planning. Anticipate discharge once patient tolerating p.o.
--- NOTE | 2018-05-19 14:30 | P.DS ---
DS: Providers Date of admission: 05/16/18 19:25 Primary care physician: Maicol Valiente MD Consults: 05/16/18 19:19 Consult to TRAVEL TICKETING REVIEWER Oncology Routine Consulting Provider: Sanjuana Allen Preferred Hogshead Liner:: Sanjuana Allen Reason for Consultation: abdominal infection Notified:: Office Spoke with:: Zoe Date Notified:: 05/17/18 Time Notified:: 08:50 Ordering Provider: ERNESTO Anticipated date of discharge: 05/19/18 Brief History from admission: Patient is a 68-year-old female with history of ovarian cancer with metastatic disease, currently being followed by Dr. Allen her oncologist as well as Dr. Savage her primary care doctor, presents the emergency room after she received her second round of chemotherapy on with intractable nausea and vomiting abdominal pain. Patient reports that she has not been able to keep anything down since , reports that he is abdominal pain, pain is worse to her right lower abdomen. Patient's blood work is significant for a white blood cell count of 25,700 with 14% bandemia. Patient was pancultured and was given a dose of vancomycin as well as Zosyn. At the time of assessment, patient's abdominal pain has improved. She is still nauseous with active vomiting. Awaiting TRAVEL TICKETING REVIEWER consult. Supportive care. Awaiting blood cultures. 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 Patient was having difficulty tolerating anything by mouth over the last couple weeks due to chemotherapy. Patient states that she started having vomiting which actually taste like feces and because she cannot stop vomiting she came to the hospital for evaluation. Workup in emergency department did indicate a systemic inflammatory response syndrome secondary to dehydration, nausea, vomiting. No infection source was identified. Patient was admitted with IV hydration with significant improvement of her leukocytosis, tachycardia. Patient was started on Zofran and Reglan, Phenergan was added with improvement of her tolerating diet. Patient has had 3 meals thus far advancing from clear liquids up to full liquids. Patient is requesting a regular diet at this time. Clinically the patient appears to be stable. If patient continues to tolerate diet without any further vomiting. Would anticipate discharging patient home with outpatient follow-up with her oncologist. Time Spent with Patient Total time spent providing and/or coordinating discharge services: Greater than 30 minutes Quality: VTE Deep Vein Thrombosis/Pulmonary Embolism Present on Admission: No Exam Narrative Exam Narrative: GENERAL: Well-developed, well-nourished, in no acute distress. alert and orientated HEENT: Head is normocephalic without any lesions or masses noted. Facial features are symmetric. Eyes: Extraocular muscles are intact. Conjunctivae were clear. NECK: Trachea midline no deviation. CARDIAC: Regular rhythm, regular rate. S1/S2 are heard. 2/6 blowing systolic murmur noted in the aortic region. No gallops or rubs. LUNGS: Clear to auscultation bilaterally. No wheeze, rhonchi or rales. No use of accessory muscles on inspiration or expiration. ABDOMEN: Soft, nontender. Nondistended. Bowel sounds heard in all 4 quadrants. No organomegaly or masses. Negative rebound, negative guarding EXTREMITIES: No edema, pulses are equal bilaterally. No cyanosis or clubbing NEUROLOGY: Mood and affect appear appropriate. Cranial nerves II through XII grossly intact. Moving all extremities, speech is clear Results Labs on day of discharge: Labs from last 24 hours 05/19/18 05:50 CBC w Diff Auto diff final WBC 5.9 D RBC 2.93 L Hgb 8.7 L Hct 26.8 L MCV 91.4 MCH 29.7 MCHC 32.5 RDW 16.1 Plt Count 120 L MPV 10.2 Neut % (Auto) 80.3 H Lymph % (Auto) 15.3 [place] % (Auto) 2.4 Eos % (Auto) 0.2 Baso % (Auto) 1.8 Neut # (Auto) 4.8 Lymph # (Auto) 0.9 L [place] # (Auto) 0.1 Eos # (Auto) 0.0 Baso # (Auto) 0.1 WBC Differential . Differential Comment . Preliminary micro results at discharge 05/16/18 18:30 Aerobic Blood Culture - Preliminary Blood - Peripheral No growth in 3 days Anaerobic Blood Culture - Preliminary No growth in 3 days 05/16/18 18:25 Aerobic Blood Culture - Preliminary Blood - Peripheral No growth in 3 days Anaerobic Blood Culture - Preliminary No growth in 3 days Impressions ITS Impressions Abdomen/Pelvis CT 05/16/18 16:22 CONCLUSION: 1. Multilocular cystic mass in the central pelvis with the dominant cystic portion measuring 12.1 x 10.3 cm. Differential considerations include ovarian malignancy or recurrence in this patient with history of cervical carcinoma. There is associated omental masses throughout the anterior abdomen consistent with metastatic disease. 2. Dominant 13 mm left retroperitoneal node and 15 mm left external iliac node also concerning for metastatic disease. 3. Additional ancillary findings, as above. Additional Comments Discussed with patient, nursing staff, Dr. Blackwell Discharge Plan Discharge Disposition Patient Disposition: Discharge Home Discharge Condition Condition: Stable Discharge Order Discharge Orders: Discharge Order (Routine); Ordered 05/19/18 Ordered By: Fercho Lyon Discharge Details Anticipated Discharge Date: 05/19/18 Discharge Comment: Okay to discharge home if tolerates dinner, without any vomiting Physicians Team ED Provider: Rosa Castro Primary Care Provider: Maicol Valiente Attending Provider: Jeevan Blackwell Other Providers: Sanjuana Allen Rxs /Orders / Referrals /Forms Prescriptions: New promethazine 25 mg tablet 25 mg PO Q4-6H PRN (Reason: nausea and vomiting) Qty: 20 RF: 0 metoclopramide HCl [Reglan] 10 mg tablet 10 mg PO Q4-6H PRN (Reason: nausea and vomiting) Qty: 20 RF: 0 dexamethasone [Decadron] 4 mg tablet 4 mg PO BID Qty: 7 RF: 0 Continue methotrexate sodium 25 mg/mL Solution 1 ml IM QWEEK RF: 0 levothyroxine 100 mcg Capsule 100 mcg PO DAILY RF: 0 folic acid 1 mg Tablet 1 mg PO DAILY RF: 0 adalimumab [Humira Pen] 40 mg/0.4 mL Pen Injector Kit 10 mg SUBCUT Q2W RF: 0 hydrocodone-acetaminophen 10-325 mg Tablet 1 tab PO Q4H Qty: 42 RF: 0 lisinopril 10 mg Tablet 10 mg PO BID Qty: 60 RF: 0 pantoprazole 40 mg Tablet,Delayed Release (Dr/Ec) 40 mg PO DAILY Qty: 30 RF: 0 sennosides [Senna Lax] 8.6 mg Tablet 17.2 mg PO BID Qty: 60 RF: 0 docusate sodium [DOK] 100 mg Capsule 100 mg PO BID Qty: 60 RF: 0 Discontinued polyethylene glycol 3350 17 gram Powder In Packet 17 gm PO DAILY Qty: 30 RF: 0 Referrals: Sanjuana Allen MD [Physician] - See Instructions (Follow-up with oncologist in 1 week) Maicol Valiente MD [Primary Care Provider] - See Instructions Status ED Status: Left Department
[2018-05-19] MEDS ORDERED: Heparin Central Flush 100 UNIT/ML 5 ML Vial IV.FLUSH PRN ×2 (17:08)
[2018-05-19] MEDS: Enoxaparin Inj 40 MG/0.4 ML Syringe SQ SCH (20:54)
[2018-05-19] MEDS: Zolpidem Tartrate 5 MG Tablet PO PRN (22:22)
[2018-05-20] MEDS: Sod Chloride 0.9% Inj 1,000 ML IV.CONT SCH (00:13)
[2018-05-20] MEDS: Levothyroxine 100 MCG Tablet PO SCH (05:33)
[2018-05-20] MEDS ORDERED: amLODIPine 10 MG Tablet PO SCH (09:00)
[2018-05-20] MEDS: Lisinopril 10 MG Tablet PO SCH (09:02)
--- NOTE | 2018-05-20 10:02 | P.PNIM ---
Subjective Interval history: Pt is a 68 y/o female seen and examined for follow up of intractable vomiting secondary to chemotherapy. Pt states she is feeling well, has been able to tolerate liquids. Last night patient had a cheeseburger, she states she experienced reflux but did not have any nausea/vomiting. Pt mentioned her BP was still elevated but states she runs high at home. Pt is afebrile and vital signs are stable. Denies SOB or chest pain. Pt was actively discharged yesterday , however pt did not feel comfortable last evening after she ate. Physical Exam Vital signs: Vital Signs 05/19/18 12:00 05/19/18 16:00 05/19/18 20:00 Temperature 98 F 98.2 F 98.6 F Pulse Rate 77 56 L 68 Respiratory Rate 20 20 18 Blood Pressure 181/91 H 191/64 H 151/68 H Pulse Oximetry 97 92 L 96 05/20/18 00:00 05/20/18 03:04 05/20/18 04:00 Temperature 97.6 F 97.7 F Pulse Rate 58 L 67 62 Respiratory Rate 18 18 Blood Pressure 179/79 H 174/89 H 187/77 H Pulse Oximetry 95 97 05/20/18 06:22 Temperature Pulse Rate Respiratory Rate Blood Pressure 186/92 H Pulse Oximetry Intake & Output 05/19/18 05/20/18 05/20/18 18:59 06:59 18:59 Intake Total 1180 / 1180 365 / 365 Balance 1180 / 1180 365 / 365 Weight 89.3 kg Intake: IV 1000 / 1000 NS Inj 1,000 ML @ 100 mls/hr IV 1000 / 1000 .CONT .Q10H WILLIAM Rx#:[id number] Oral 180 / 180 365 / 365 Other: # Voids 4 2 Narrative: GENERAL: Well-developed, well-nourished, in no acute distress. alert and orientated HEENT: Head is normocephalic without any lesions or masses noted. Facial features are symmetric. Eyes: Extraocular muscles are intact. Conjunctivae were clear. NECK: Trachea midline no deviation. CARDIAC: Regular rhythm, regular rate. S1/S2 are heard. 2/6 blowing systolic murmur noted in the aortic region. No gallops or rubs. LUNGS: Clear to auscultation bilaterally. No wheeze, rhonchi or rales. No use of accessory muscles on inspiration or expiration. ABDOMEN: Soft, nontender. Nondistended. Right-sided abdominal tenderness upon palpation. EXTREMITIES: No edema, pulses are equal bilaterally. No cyanosis or clubbing NEUROLOGY: Mood and affect appear appropriate. Moving all extremities, speech is clear Results - Labs CBC & Chem 7: 05/19/18 05:50 05/18/18 06:00 Microbiology 05/16/18 18:30 Blood - Peripheral Aerobic Blood Culture - Preliminary No growth in 3 days 05/16/18 18:30 Blood - Peripheral Anaerobic Blood Culture - Preliminary No growth in 3 days 05/16/18 18:25 Blood - Peripheral Aerobic Blood Culture - Preliminary No growth in 3 days 05/16/18 18:25 Blood - Peripheral Anaerobic Blood Culture - Preliminary No growth in 3 days Assessment and Plan - Plan Intractable nausea, vomiting secondary to chemotherapy, improved Patient is on Zofran, Reglan and Phenergan Advance diet as tolerated. Will assess pt after lunch, anticipate to discharge. Hypertension -Pt was not on any medications prior to admission. Started pt on lisinopril 10 mg bid with minimal control, added amlodipine 10 mg qd. Systemic inflammatory response syndrome, resolved Patient did present with leukocytosis, tachycardia No infection source was identified Patient was on Zosyn and vancomycin, antibiotics were discontinued on 2018 since no infection source has been identified Leukocytosis, resolved Likely secondary to Neulasta No source of infection has been identified Blood cultures negative for 2 days Hypokalemia, resolved -Continue to monitor and replete as needed Hypothyroidism Replacement therapy was resumed DVT prevention Subcutaneous Lovenox Discussed Condition With: Patient, nursing staff, Discharge Planning: Discharge on hold until after lunch. If pt tolerates lunch p.o. will anticipate discharge.
[2018-05-20] MEDS ORDERED: Heparin Central Flush 100 UNIT/ML 5 ML Vial IV.FLUSH PRN ×2 (15:02)
== END 2018-05-20 15:45 | disposition home or self-care (01) | DRG 755 ==
LOC: PHED 16:02 → PHEDA 16:02 → PH3 20:40
PROVIDERS: ADMIT Hospitalist; ATTEND Hospitalist
DX: C77.4 Secondary and unspecified malignant neoplasm of inguinal and lower limb lymph nodes; C56.9 Malignant neoplasm of unspecified ovary; C79.89 Secondary malignant neoplasm of other specified sites; R01.1 Cardiac murmur, unspecified; K21.9 Gastro-esophageal reflux disease without esophagitis; Z90.711 Acquired absence of uterus with remaining cervical stump; N32.9 Bladder disorder, unspecified; Z83.3 Family history of diabetes mellitus; M06.9 Rheumatoid arthritis, unspecified; T45.8X5A Adverse effect of other primarily systemic and hematological agents, initial encounter; Z90.49 Acquired absence of other specified parts of digestive tract; Z79.899 Other long term (current) drug therapy; R62.7 Adult failure to thrive; Z87.891 Personal history of nicotine dependence; Z85.41 Personal history of malignant neoplasm of cervix uteri; Z85.048 Personal history of other malignant neoplasm of rectum, rectosigmoid junction, and anus; D72.825 Bandemia; Z82.49 Family history of ischemic heart disease and other diseases of the circulatory system; Z79.890 Hormone replacement therapy; E03.9 Hypothyroidism, unspecified; Z93.3 Colostomy status; I10 Essential (primary) hypertension; E86.0 Dehydration; E87.6 Hypokalemia; R00.0 Tachycardia, unspecified; R65.10 Systemic inflammatory response syndrome (SIRS) of non-infectious origin without acute organ dysfunction; R11.2 Nausea with vomiting, unspecified; T45.1X5A Adverse effect of antineoplastic and immunosuppressive drugs, initial encounter; D72.829 Elevated white blood cell count, unspecified
CPT/HCPCS: 74177; 80053; 81001; 83605; 83690; 83735; 85025; 87040; 90761; 90765; 90775; 93005; 96361; 96365; 96367; 96372; 96375; 96413; 96415; 96417; 99285; C9210; J0780; J1100; J1642; J1650; J2270; J2405; J2469; J2505; J2543; J2550; J2765; J3370; J3480; J7030; J7040; J7050; J9045; J9267; Q9967